=== PATIENT | male | born 1975 | race Caucasian/White ===

== ENCOUNTER 2023-03-01 21:33 | Emergency (ER) | payer SELFPAY ==
--- OUTSIDE RECORDS SUMMARY | 2023-03-01 21:36 | XMS REPORT | Continuity of Care Document ---
Author Name Unknown Address [address] [facility] [address] [place] [address] [facility] Address [address] [facility] [address] [place] [address] Care Team Providers Care Parachute Panel Joiner Name Role Phone [facility], [facility] Primary Care Physician UnaJOSEPH Rivera Attending Clinician Unavailable JOSEPH ALVAREZ Attending Clinician Unavailable JAMAR LIU Attending Clinician Unavailable Jamar Liu MD Attending Clinician Loni Alves DO Attending Clinician LONI ALVES Attending Clinician Unavailab VAUGHN Ewing Attending Clinician Unavailable ADIA TAPIA Attending Clinician UnavailSANTA Conde Attending Clinician Unavailable BEN KING Attending Clinician Unavailable IVON TRIPATHI Attending Clinician Unavailable REUBEN COLE Attending Clinician Unavailab shamir Paymaryse Payer Name Policy Type Policy Number Effective Date Expirati on Date Source [facility] [id number] 00:00:00 2020-01-27 00:00:00 Problems Condition Name Condition Details Condition Category Status Onset Date Resolution Date Last Treatment Date Treating Clinician Comments Source Left inguinal hernia Left inguinal hernia Disease Active 09-28 00:00: 00 [facility] Other constipati on Other constipati on Disease Active 09-28 00:00: 00 [facility] Right groin pain Right groin pain Disease Active 09-28 00:00: 00 [facility] Allergies, Adverse Reactions, Alerts Allergy Name Allergy Type Status Severity Reaction(s) Onset Date Inactive Date Treating Clinician Comments Source No Known Allergie s DA Active U 2018-03 00:00: 00 [facility] [address] NO KNOWN ALLERGIE S Drug Class Active [facility] Social History Social Habit Start Date Stop Date Quantity Comments Source Sexual orientation [facility] History of Social function 2021-04-26 00:00:00 2021-04-26 00:00:00 [facility] Cigarettes smoked current (pack per day) - Reported 2018-09-28 00:00:00 2018-09-28 00:00:00 [facility] Tobacco use and exposure 2018-09-28 00:00:00 2018-09-28 00:00:00 Smokeless tobacco non-user [facility] History of tobacco use 1994-09-28 00:00:00 2018-05-29 00:00:00 Cigarette Smoker [facility] Sex Assigned At 1975 00:00:00 1975 00:00:00 [facility] Smoking Status Start Date Stop Date Source Ex-smoker 2018-09-28 00:00:00 2018-09-28 00:00:00 [facility] Medications Ordered Medication Name Filled Medication Name Start Date Stop Date Current Medication? Ordering Clinician Indication Dosage Frequency Signature (SIG) Comments Components Source busPIRone 15 mg tablet 11-01 00:00: 00 Yes [id number] 15mg Take 1 tablet by mouth in the morning and 1 tablet at noon and 1 tablet in the evening. [facility] pantoprazol e 40 mg EC tablet 11-01 00:00: 00 Yes [id number] TAKE ONE (1) TABLET BY MOUTH EVERY MORNING. [facility] gabapentin 800 mg tablet 11-01 00:00: 00 Yes [id number] 800mg Take 1 tablet by mouth in the morning and 1 tablet at noon and 1 tablet in the evening. [facility] busPIRone 15 mg tablet 8 00:00: 00 Yes [id number] 15mg Take 1 tablet by mouth in the morning and 1 tablet at noon and 1 tablet in the evening. [facility] pantoprazol e 40 mg EC tablet 11-01 00:00: 00 Yes [id number] TAKE ONE (1) TABLET BY MOUTH EVERY MORNING. [facility] gabapentin 800 mg tablet 11-01 00:00: 00 Yes [id number] 800mg Take 1 tablet by mouth in the morning and 1 tablet at noon and 1 tablet in the evening. [facility] busPIRone 15 mg tablet 11-01 00:00: 00 Yes [id number] 15mg Take 1 tablet by mouth in the morning and 1 tablet at noon and 1 tablet in the evening. [facility] pantoprazol e 40 mg EC tablet 11-01 00:00: 00 Yes [id number] TAKE ONE (1) TABLET BY MOUTH EVERY MORNING. [facility] gabapentin 800 mg tablet 11-01 00:00: 00 Yes [id number] 800mg Take 1 tablet by mouth in the morning and 1 tablet at noon and 1 tablet in the evening. [facility] DULoxetine 30 mg capsule 09-12 00:00: 00 Yes [id number] 30mg Take 1 capsule by mouth 2 (two) times daily. [facility] DULoxetine 30 mg capsule 0 09-12 00:00: 00 Yes [id number] 30mg Take 1 capsule by mouth 2 (two) times daily. [facility] DULoxetine 30 mg capsule 0 09-12 00:00: 00 Yes [id number] 30mg Take 1 capsule by mouth 2 (two) times daily. [facility] ondansetron 4 mg tablet 2- 00:00: 00 Yes [id number] 4mg Take 1 tablet by mouth every 8 (eight) hours as needed for Nausea and Vomiting (N/V). [facility] ondansetron 4 mg tablet 05-15 00:00: 00 Yes [id number] 4mg Take 1 tablet by mouth every 8 (eight) hours as needed for Nausea and Vomiting (N/V). [facility] ondansetron 4 mg tablet 05-15 00:00: 00 Yes [id number] 4mg Take 1 tablet by mouth every 8 (eight) hours as needed for Nausea and Vomiting (N/V). [facility] docusate (COLACE) 100 mg capsule 09-28 00:00: 00 Yes [id number] 100mg Take 1 capsule by mouth 2 (two) times daily. [facility] docusate (COLACE) 100 mg capsule 09-28 00:00: 00 Yes [id number] 100mg Take 1 capsule by mouth 2 (two) times daily. [facility] docusate (COLACE) 100 mg capsule 09-28 00:00: 00 Yes [id number] 100mg Take 1 capsule by mouth 2 (two) times daily. [facility] Vital Signs Vital Name Observation Time Observation Value Comments S ource Systolic blood pressure 2023-02-26 08:24:00 149 mm[Hg] [facility] Diastolic blood pressure 2023-02-26 08:24:00 99 mm[Hg] [facility] Heart rate 2023-02-26 08:24:00 88 /min [facility] Body temperature 2023-02-26 08:24:00 36.22 Genet [facility] Respiratory rate 2023-02-26 08:24:00 18 /min [facility] Body height 2023-02-26 08:24:[address] [facility] Body weight 2023-02-26 08:24:[address] [facility] BMI 2023-02-26 08:24:00 24.21 kg/m2 [facility] Oxygen saturation in Arterial blood by Pulse oximetry 2023-02-26 08:24:00 100 /min [facility] Heart rate 2022-12-27 10:16:00 84 /[facility] in Arterial blood by Pulse oximetry 2022-12-27 10:16:00 97 /min [facility] Systolic blood pressure 2022-12-27 10:00:00 154 mm[Hg] [facility] Diastolic blood pressure 2022-12-27 10:00:00 101 mm[Hg] [facility] Body temperature 2022-12-27 09:27:00 36.94 Genet [facility] Respiratory rate 2022-12-27 09:27:00 18 /min [facility] Body height 2022-12-27 09:27:[address] [facility] Body weight 2022-12-27 09:27:[address] [facility] BMI 2022-12-27 09:27:00 25.82 kg/m2 [facility] Systolic blood pressure 2022-12-14 10:51:44 127 mm[Hg] [facility] Diastolic blood pressure 2022-12-14 10:51:44 69 mm[Hg] [facility] Heart rate 2022-12-14 10:51:44 108 /min [facility] Oxygen saturation in Arterial blood by Pulse oximetry 2022-12-14 10:51:44 99 /min [facility] Body temperature 2022-12-14 10:49:00 36.61 Genet [facility] Respiratory rate 2022-12-14 10:49:00 20 /min [facility] Body height 2022-12-14 10:49:[address] [facility] Body weight 2022-12-14 10:49:[address] [facility] BMI 2022-12-14 10:49:00 26.63 kg/m2 [facility] Procedures Procedure Date / Time Performed Performing Clinicia n Source EKG-12 LEAD 2023-02-26 08:29:[facility] 2022-12-27 10:06:[address] [facility] Encounters Start Date/Time End Date/Time Encounter Type Admission Type Attending [facility] Care Department Encounter ID Source 2023-02-26 02:22:00 2023-02-26 02:48:00 Emergency X JOSEPH ALVAREZ AMIR [facility] ERT [id number] [facility] 2023-02-26 02:22:00 2023-02-26 02:48:00 Emergency Joseph Alvarez [facility] [id number] [facility] 2022-12-27 04:23:00 2022-12-27 05:28:00 Emergency X JAMAR LIU [facility] ERT [id number] [facility] 2022-12-27 04:23:00 2022-12-27 05:28:00 Emergency Jamar Liu [facility] [id number] [facility] 2022-12-14 05:43:00 2022-12-14 06:21:00 Emergency Loni Alves [facility] [id number] [facility] 2022-12-14 05:43:00 2022-12-14 06:21:00 Emergency X LONI ALVES [facility] ERT [id number] [facility] 2022-12-04 00:00:00 2022-12-04 00:00:00 Outpatient VAUGHN SHIRLEY [facility] [id number] [facility] 2022-11-01 08:10:19 2022-11-01 09:11:25 Outpatient VAUGHN SHIRLEY [facility] [id number] [facility] 2022-10-15 21:34:00 2022-10-18 17:40:00 Inpatient ADIA TAPIA [facility] [id number] [facility] 2022-10-15 10:36:00 2022-10-15 21:30:00 Emergency 1 LISBETH SANTA [facility] [id number] [facility] 2022-10-15 00:00:00 2022-10-15 00:00:00 Outpatient [facility] [id number] [facility] 2021-05-15 00:00:00 2021-05-15 00:00:00 Outpatient [facility] [id number] [facility] 2021-03-28 10:46:23 2021-03-28 23:59:00 Outpatient BEN KING [facility] [id number] [facility] 2020-02-22 00:00:00 2020-02-22 00:00:00 Outpatient [facility] [id number] [facility] 2020-01-18 00:00:00 2020-01-18 00:00:00 Outpatient [facility] [id number] [facility] 2019-12-15 00:00:00 2019-12-15 00:00:00 Outpatient [facility] [id number] [facility] 2019-10-13 00:00:00 2019-10-13 00:00:00 Outpatient [facility] [id number] [facility] 2019-09-20 00:00:00 2019-09-20 00:00:00 Outpatient [facility] [id number] [facility] 2019-07-19 07:21:30 2019-07-19 07:21:30 Outpatient [facility] [id number] [facility] 2019-07-19 00:00:00 2019-07-19 00:00:00 Outpatient [facility] [id number] [facility] 2019-05-19 13:46:53 2019-05-19 13:46:53 Outpatient [facility] [id number] [facility] 2019-05-03 00:00:00 2019-05-03 00:00:00 Outpatient [facility] [id number] [facility] 2019-04-27 00:00:00 2019-04-27 00:00:00 Outpatient [facility] [id number] [facility] 2019-04-21 00:00:00 2019-04-21 00:00:00 Outpatient [facility] [id number] [facility] 2019-03-31 06:29:00 2019-03-31 06:29:00 Outpatient [facility] [id number] [facility] 2019-03-31 00:00:00 2019-03-31 00:00:00 Outpatient [facility] [id number] [facility] 2019-03-29 00:00:00 2019-03-29 00:00:00 Outpatient [facility] [id number] [facility] 2019-03-22 07:27:48 2019-03-22 07:27:48 Outpatient [facility] [id number] [facility] 2019-03-22 00:00:00 2019-03-22 00:00:00 Outpatient [facility] [id number] [facility] 2019-03-22 00:00:00 2019-03-22 00:00:00 Outpatient [facility] [id number] [facility] 2019-03-05 00:00:00 2019-03-05 00:00:00 Outpatient [facility] [id number] [facility] 2019-03-03 08:46:18 2019-03-03 09:40:40 Outpatient IVON TRIPATHI [facility] [id number] [facility] 2019-03-01 08:11:17 2019-03-01 08:11:17 Outpatient [facility] [id number] [facility] 2019-03-01 07:53:08 2019-03-01 07:53:08 Outpatient [facility] [id number] [facility] 2019-03-01 00:00:00 2019-03-01 00:00:00 Outpatient [facility] [id number] [facility] 2019-02-23 00:00:00 2019-02-23 00:00:00 Outpatient [facility] [id number] [facility] 2019-02-17 00:00:00 2019-02-17 00:00:00 Outpatient [facility] [id number] [facility] 2019-02-16 00:00:00 2019-02-16 00:00:00 Outpatient [facility] [id number] [facility] 2019-01-12 00:00:00 2019-01-12 00:00:00 Outpatient IVON TRIPATHI [facility] [id number] [facility] 2019-01-06 00:00:00 2019-01-06 00:00:00 Outpatient REUBEN COLE [facility] [id number] [facility] 2019-01-06 00:00:00 2019-01-06 00:00:00 Outpatient [facility] [id number] [facility] 2018-11-30 00:00:00 2018-11-30 00:00:00 Outpatient [facility] [id number] [facility] 2018-11-18 00:00:00 2018-11-18 00:00:00 Outpatient [facility] [id number] [facility] 2018-11-16 00:00:00 2018-11-16 00:00:00 Outpatient [facility] [id number] [facility] 2018-06-24 00:00:00 2018-06-24 00:00:00 Outpatient [facility] [id number] [facility] 2018-04-24 00:00:00 2018-04-24 00:00:00 Outpatient [facility] [id number] [facility] 2018-04-14 00:00:00 2018-04-14 00:00:00 Outpatient [facility] [id number] [facility] 2018-03-09 14:21:39 2018-03-09 14:21:39 Outpatient [facility] [id number] [facility] 2018-03-09 13:55:33 2018-03-09 13:55:33 Outpatient [facility] [id number] [facility] 2018-02-19 00:00:00 2018-02-19 00:00:00 Outpatient [facility] [id number] [facility] 2018-01-19 00:00:00 2018-01-19 00:00:00 Outpatient [facility] [id number] [facility] 2018-01-16 00:00:00 2018-01-16 00:00:00 Outpatient [facility] [id number] [facility] 2018-01-14 07:34:07 2018-01-14 07:34:07 Outpatient [facility] [id number] [facility] 2018-01-06 00:00:00 2018-01-06 00:00:00 Outpatient [facility] [id number] [facility] 2017-12-17 00:00:00 2017-12-17 00:00:00 Outpatient [facility] [id number] [facility] 2017-12-03 00:00:00 2017-12-03 00:00:00 Outpatient [facility] [id number] [facility] 2017-11-19 10:43:58 2017-11-19 10:43:58 Outpatient [facility] [id number] [facility] 2017-04-21 00:00:00 2017-04-21 00:00:00 Outpatient [facility] [id number] [facility] 2017-04-17 00:00:00 2017-04-17 00:00:00 Outpatient [facility] [id number] [facility] 2017-02-19 13:38:13 2017-02-19 13:38:13 Outpatient [facility] [id number] [facility] 2017-01-22 00:00:00 2017-01-22 00:00:00 Outpatient [facility] [id number] [facility] 2016-12-10 00:00:00 2016-12-10 00:00:00 Outpatient [facility] [id number] [facility] 2016-11-19 00:00:00 2016-11-19 00:00:00 Outpatient [facility] [id number] [facility] 2016-10-23 00:00:00 2016-10-23 00:00:00 Outpatient [facility] [id number] [facility] 2016-10-17 00:00:00 2016-10-17 00:00:00 Outpatient [facility] [id number] [facility] 2016-10-08 13:10:17 2016-10-08 13:10:17 Outpatient [facility] [id number] [facility] Results Test Description Test Time Test Comments Results Result Co mments Source COMMENT: This [employer] Xpert Xpress SARS-CoV-2 real-time PCR test was developed, and its performancecharacteristics determined by the [facility] molecular diagnostic Laboratory and is acceptable for patient testing. It has been approved for patient testing by the FDA under the Emergency Use Authorization pathway. This laboratory is certified under federal CLIA regulations to perform this type of high complexity testing.[facility] XR CHEST 1 [id number] 13:52:00Patient Name: SAI HEREDIA Unit No: [id number] EXAMS: CPT: [id number] XR CHEST 1 V 49203 CHEST RADIOGRAPH, ONE VIEW: FRONTAL HISTORY: Chest pain. COMPARISON: None FINDINGS: The lungs are clear and the cardiovascular silhouette is normal. No infiltrates or pulmonary edema is present. No pleural effusions are seen. IMPRESSION: No acute lung findings. at 1352 Reported and signed by: Annabella Bustillo MD CC: Bautista Jason DO Technologist: Tad Ernst Fluoro Time: DAP (Gy m2): Air Kerma (mGy): Trscr Dt/Tm: 02/12/2019 ([id number]) by:[email or web address] Orig Print D/T: S: 02/12/2019 ([id number]) BATCH NO: N/A Name: SAI HEREDIA [facility] Phys: [id number] - Bautista Jason [address] [facility] : 1975 Age: 43 Sex: [place] [id number] Loc: N.ERS Exam Date: 02/12/2019 Status: PRE ER PH: FAX: PAGE 1 Signed Report
[2023-03-01 22:07] LABS: Absolute Lymphocytes (CBC) 1.3 K/uL (0.7-4.9); Hematocrit 39.4 % (39.6-49.0); Lymphocytes % 26.4 % (15.3-44.8); MCV 89.1 fL (80-100); Platelets 191 thou/uL (152-406); RBC Red Blood Cell Count 4.43 M/uL (4.33-5.43)
[2023-03-01 22:09] LABS: Protime INR 0.85
[2023-03-01] MEDS ORDERED: METOPROLOL TAR 25 MG TAB ONE (22:13)
[2023-03-01 22:25] LABS: ALT/SGPT 24 U/L (16-61); Albumin 3.5 g/dL (3.4-5.0); Alkaline Phosphatase 107 U/L (45-117); BUN Blood Urea Nitrogen 13 mg/dL (7-18); Bicarbonate 23 mEq/L (21-32); Bilirubin Total 0.2 mg/dL (0.2-1.0); Glomerular Filtration Rate 76 ml/min (=/>90); Glucose Level 159 mg/dL (74-106); Protein, Total 6.9 g/dL (6.4-8.2); Sodium Level 136 mEq/L (136-145)
[2023-03-01 22:30] LABS: AST/SGOT 14 U/L (15-37); Bilirubin Direct < 0.1 mg/dL (0-0.2); Bilirubin Indirect, Calculated ND mg/dL (0.2-0.8)
[2023-03-01 22:52] LABS: Barbiturates NEGATIVE (NEGATIVE); Benzodiazepines NEGATIVE (NEGATIVE); Cocaine NEGATIVE (NEGATIVE); METHAMPHETAM POSITIVE (NEGATIVE); Methadone NEGATIVE (NEGATIVE); Opiates NEGATIVE (NEGATIVE); Phencyclidine NEGATIVE (NEGATIVE); THC Cannibis NEGATIVE (NEGATIVE)
--- NOTE | 2023-03-01 23:15 | EDPHYS ---
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 22:02 The patient presents with hearing voices. Onset: The symptoms/episode began/occurred snw and became worse 3 day(s) ago. Possible causes: schizophrenia. Current symptoms: In the emergency department the patient's symptoms are unchanged from the initial presentation. The patient has experienced similar episodes in the past. recent admission to [facility]. Historical: - Allergies: 21:42 No Known Allergies; rv - PMHx: 21:42 None; rv - PSHx: 21:42 None; rv - Immunization history:: Adult Immunizations unknown. - Social history:: Smoking status: unknown. ROS: 22:01 Constitutional: Negative for fever, chills, and weight loss, Eyes: Negative for injury, snw pain, redness, and discharge, ENT: Negative for injury, pain, and discharge, Neck: Negative for injury, pain, and swelling, Cardiovascular: Negative for chest pain, palpitations, and edema, Respiratory: Negative for shortness of breath, cough, wheezing, and pleuritic chest pain, Abdomen/GI: Negative for abdominal pain, nausea, vomiting, diarrhea, and constipation, Back: Negative for injury and pain, : Negative for injury, bleeding, discharge, and swelling, MS/Extremity: Negative for injury and deformity, Skin: Negative for injury, rash, and discoloration, Neuro: Negative for headache, weakness, numbness, tingling, and seizure, 22:01 Psych: Positive for auditory hallucinations, Exam: 21:59 Constitutional: This is a well developed, well nourished patient who is awake, alert, snw mildly agitated, and in no acute distress. Head/Face: Normocephalic, atraumatic. Eyes: Pupils equal round and reactive to light, extra-ocular motions intact. Lids and lashes normal. Conjunctiva and sclera are non-icteric and not injected. Cornea within normal limits. Periorbital areas with no swelling, redness, or edema. ENT: Nares patent. No nasal discharge, no septal abnormalities noted. Tympanic membranes are normal and external auditory canals are clear. Oropharynx with no redness, swelling, or masses, exudates, or evidence of obstruction, uvula midline. Mucous membranes moist. Neck: Trachea midline, no thyromegaly or masses palpated, and no cervical lymphadenopathy. Supple, full range of motion without nuchal rigidity, or vertebral point tenderness. No Meningismus. Chest/axilla: Normal chest wall appearance and motion. Nontender with no deformity. No lesions are appreciated. Cardiovascular: Regular rate and rhythm with a normal S1 and S2. No gallops, murmurs, or rubs. Normal PMI, no JVD. No pulse deficits. Respiratory: Lungs have equal breath sounds bilaterally, clear to auscultation and percussion. No rales, rhonchi or wheezes noted. No increased work of breathing, no retractions or nasal flaring. Abdomen/GI: Soft, non-tender, with normal bowel sounds. No distension or tympany. No guarding or rebound. No evidence of tenderness throughout. Back: No spinal tenderness. No costovertebral tenderness. Full range of motion. Skin: Warm, dry with normal turgor. Normal color with no rashes, no lesions, and no evidence of cellulitis. MS/ Extremity: Pulses equal, no cyanosis. Neurovascular intact. Full, normal range of motion. Neuro: Awake and alert, GCS 15, oriented to person, place, time, and situation. Cranial nerves II-XII grossly intact. Motor strength 5/5 in all extremities. Sensory grossly intact. Cerebellar exam normal. Normal gait. 21:59 Neuro: Orientation: to person, place \T\ time. Mentation: is normal, Sensation: is normal, Gait: is steady, 21:59 Psych: Behavior/mood is cooperative, anxious, Affect is animated, Oriented to person, place, time, Delusions/hallucinations are present and described as Hearing voices, no SI/HI. Vital Signs: 21:39 BP 146 / 103; Pulse 113; Resp 18; Temp 98; Pulse Ox 100% ; Weight 68.04 kg; Height 5 rv ft. 6 in. ; 22:28 BP 159 / 99; Pulse 110; Resp 18 S; Pulse Ox 99% on R/A; ha1 22:42 BP 127 / 113; Pulse 116; Resp 18; Pulse Ox 100% on R/A; km8 23:13 BP 153 / 99; Pulse 91; Resp 16; Pulse Ox 99% on R/A; km8 03/02 01:30 BP 119 / 70; Pulse 84; Resp 16; Pulse Ox 96% on R/A; km8 02:30 BP 110 / 84; Pulse 78; Resp 14 S; Pulse Ox 98% on R/A; km8 03:00 BP 103 / 75; Pulse 75; Resp 16; Pulse Ox 97% on R/A; km8 04:00 BP 105 / 73; Pulse 69; Resp 15 S; Pulse Ox 97% on R/A; ha1 05:00 BP 105 / 71; Pulse 84; Resp 16; Pulse Ox 99% on R/A; km8 06:00 BP 105 / 69; Pulse 80; Resp 18 S; Pulse Ox 100% on R/A; ha1 03/01 21:39 Body Mass Index 24.21 (68.04 kg, 167.64 cm) rv [place] Coma Score: 03/01 22:01 Eye Response: spontaneous(4). Motor Response: obeys commands(6). Verbal Response: km8 oriented(5). Total: 15. MDM: 21:40 Patient medically screened. snw 23:02 Differential Diagnosis: electrolyte abnormality, alcohol intoxication, psychosis. Data snw reviewed: vital signs, nurses notes, lab test result(s), EKG. I considered the following discharge prescriptions or medication management in the emergency department Medications were administered in the Emergency Department. See MAR. Historians other than the Patient: Law enforcement: Pt brought to ED 2nd to pt wandering around. Counseling: I had a detailed discussion with the patient and/or guardian regarding the historical points, exam findings, and any diagnostic results supporting the discharge/admit diagnosis, the need for outpatient follow up, for definitive care, to return to the emergency department if symptoms worsen or persist or if there are any questions or concerns that arise at home. Special discussion: Based on the history and exam findings, there is no indication for further emergent testing or inpatient evaluation. I discussed with the patient/guardian the need to see the psychiatrist for further evaluation of the symptoms. ED course: Pt denies suicidal/homicidal ideation. 23:48 ED course: At 2215 pt was [facility]. At 2230 pt screaming and running about snw stating the flies were in his ears and trying to kill him. He called his Father and ran back in the ED. I spoke with his Father. He states his Son just got kicked out of [facility]. He just was discharged from [facility] 2 days ago. Today was his first day in the [facility]. His Father states he believes his Son is on Meth and he would like him arrested. Will give a dose of Geodon and let him sleep and then discharge pt to home. . ED course: Father - Aly Coronado [phone]. 03/01 21:49 Order name: Acetaminophen; Complete Time: 22:37 snw 03/01 21:49 Order name: BMP; Complete Time: 22:37 snw 03/01 21:49 Order name: CBC with Diff; Complete Time: 22:09 snw 03/01 21:49 Order name: Ethanol; Complete Time: 22:18 snw 03/01 21:49 Order name: Hepatic Function; Complete Time: 22:37 snw 03/01 21:49 Order name: Protime (+inr); Complete Time: 22:09 snw 03/01 21:49 Order name: Ptt, Activated; Complete Time: 22:09 snw 03/01 21:49 Order name: Salicylate; Complete Time: 22:26 snw 03/01 21:49 Order name: Urine Drug Screen; Complete Time: 23:00 snw 03/01 21:49 Order name: EKG; Complete Time: 21:50 snw 03/01 21:49 Order name: EKG - Nurse/Tech; Complete Time: 22:00 snw 03/01 21:49 Order name: IV Saline Lock; Complete Time: 22:00 snw 03/01 21:49 Order name: Labs collected and sent; Complete Time: 22:00 snw 03/01 21:49 Order name: O2 Per Protocol; Complete Time: 22:00 snw 03/01 21:49 Order name: O2 Sat Monitoring; Complete Time: 22:00 snw 03/01 21:49 Order name: Suicide Screening ([place]); Complete Time: 22:00 snw EC:48 Rate is 103 beats/min. Rhythm is regular. QRS [place] is Normal. IA interval is normal. QT snw interval is normal. No Q waves. Clinical impression: NSR w/ Non-specific ST/T Changes. Administered Medications: 22:00 Drug: Metoprolol PO 25 mg PO once Route: PO; 23:00 Follow up: Response: No adverse reaction 23:15 Drug: Acetaminophen PO 1000 mg PO once Route: PO; 03/02 00:05 Follow up: Response: No adverse reaction 03/01 23:58 Drug: Geodon IM 20 mg IM once Route: IM; Site: right vastus lateralis; 03/02 01:47 Follow up: Response: No adverse reaction; Anxiety decreased Disposition: 03/01 23:47 Co-signature as Attending Physician, Ishmael Dietrich MD I reviewed the patient's care rt provided by the Advanced Practice Provider and agree with the diagnosis and treatment plan. Disposition Summary: 03/01/23 23:14 Discharge Ordered Notes: Location: Home snw Condition: Stable snw Diagnosis - Schizoaffective disorder, unspecified snw Followup: snw - With: Emergency Department - When: As needed - Reason: Worsening of condition Followup: snw - With: Private Physician - When: 2 - 3 days - Reason: Recheck today's complaints, Continuance of care, Re-evaluation by your physician Discharge Instructions: - Discharge Summary Sheet snw - Schizoaffective Disorder snw - Managing Schizoaffective Disorder snw Forms: - Medication Reconciliation Form snw - Thank You Letter snw - Antibiotic Education snw - Prescription Opioid Use snw - Patient Portal Instructions snw - Leadership Thank You Letter snw Signatures: Dispatcher [employer] Erica Mcarthur FNP-C SANITATION INSPECTOR-Csnw Tomy Cameron RN MAKENZIE Megan Giles RN RN [facility] Ishmael Dietrich MD MD rt Giovanna Saleem RN RN 8
--- NOTE | 2023-03-01 23:15 | ER ---
Nurse's Notes [facility] Name: Ron Coronado Age: 47 yrs Sex: Male : 1975 Arrival Date: 03/01/2023 Time: 21:33 Bed 5 Private MD: Diagnosis: Schizoaffective disorder, unspecified Presentation: 03/01 21:39 Chief complaint: Patient states: pt is hearing voices, denies SI/HI. AAOX4 at this rv time. denies pain at this time. Coronavirus screen: At this time, the client does not indicate any symptoms associated with coronavirus-19. Ebola Screen: No symptoms or risks identified at this time. Initial Sepsis Screen: Does the patient meet any 2 criteria? No. Patient's initial sepsis screen is negative. Does the patient have a suspected source of infection? No. Patient's initial sepsis screen is negative. Risk Assessment: Do you want to hurt yourself or someone else? Patient reports no desire to harm self or others. Onset of symptoms was March 01, 2023. 21:39 Method Of Arrival: Ambulatory rv 21:39 Method Of Arrival: Law Enforcement: [facility] rv 21:39 Acuity: QUINTEN 2 rv Triage Assessment: 21:42 General: Appears comfortable, Behavior is calm, cooperative. Pain: Denies pain. EENT: rv No signs and/or symptoms were reported regarding the EENT system. Neuro: Level of Consciousness is awake, alert, obeys commands, Oriented to person, place, time, situation. Cardiovascular: Capillary refill < 3 seconds Patient's skin is warm and dry. Respiratory: Airway is patent Respiratory effort is even, unlabored. GI: No signs and/or symptoms were reported involving the gastrointestinal system. : No signs and/or symptoms were reported regarding the genitourinary system. Derm: Skin is intact. Historical: - Allergies: 21:42 No Known Allergies; rv - PMHx: 21:42 None; rv - PSHx: 21:42 None; rv - Immunization history:: Adult Immunizations unknown. - Social history:: Smoking status: unknown. Screenin:43 [facility] ED Fall Risk Assessment (Adult) History of falling in the last 3 months, rv including since admission No falls in past 3 months (0 pts) Score/Fall Risk Level 0 - 2 = Low Risk Oriented to surroundings, Maintained a safe environment, Educated pt \\T\\ family on fall prevention, incl call for assistance when getting out of bed, Assessed \\T\\ reinforced patient's understanding of fall precautions. Abuse screen: Denies threats or abuse. Denies injuries from another. Nutritional screening: No deficits noted. Tuberculosis screening: No symptoms or risk factors identified. Assessment: 22:01 General: Appears in no apparent distress. comfortable, Behavior is calm, cooperative. km8 Pain: Denies pain. Neuro: Level of Consciousness is awake, alert, obeys commands, Oriented to person, place, time, situation, Reports hearing voices. Cardiovascular: Denies chest pain, shortness of breath, Capillary refill < 3 seconds Patient's skin is warm and dry. Respiratory: Airway is patent Respiratory effort is even, unlabored, Respiratory pattern is regular, symmetrical. GI: No signs and/or symptoms were reported involving the gastrointestinal system. : No signs and/or symptoms were reported regarding the genitourinary system. EENT: No signs and/or symptoms were reported regarding the EENT system. Derm: No signs and/or symptoms reported regarding the dermatologic system. Skin is intact, Skin is dry, Skin is pink, warm \\T\\ dry. normal, Skin temperature is warm. Musculoskeletal: No signs and/or symptoms reported regarding the musculoskeletal system. Circulation, motion, and sensation intact. Range of motion: intact in all extremities. 22:03 General: pt denies SI or HI. km8 23:13 Reassessment: Patient appears in no apparent distress at this time. No changes from km8 previously documented assessment. Patient and/or family updated on plan of care and expected duration. Pain level reassessed. Patient is alert, oriented x 3, equal unlabored respirations, skin warm/dry/pink. 23:50 Reassessment: pt. reports hearing voices that are very annoying. pacing in and out of ha1 room. 03/02 00:03 Reassessment: pt returned from waiting room after initial discharge stating the "king carlin fly is out to get him" and has a blanket wrapped around his head and is still hearing voices. 01:30 Reassessment: Patient appears in no apparent distress at this time. Patient and/or 8 family updated on plan of care and expected duration. Pain level reassessed. Patient is alert, oriented x 3, equal unlabored respirations, skin warm/dry/pink. General: Appears in no apparent distress. comfortable, Behavior is calm, quiet. 02:06 Reassessment: eyes closed. Respiratory: Airway is patent Respiratory effort is even, ha1 unlabored, Respiratory pattern is regular, symmetrical. 03:22 Reassessment: Patient appears in no apparent distress at this time. No changes from 8 previously documented assessment. 04:30 Reassessment: Patient appears in no apparent distress at this time. No changes from km8 previously documented assessment. 05:45 Reassessment: Patient and/or family updated on plan of care and expected duration. Pain ha1 level reassessed. Patient is alert, oriented x 3, equal unlabored respirations, skin warm/dry/pink. 06:32 Reassessment: explained the need to follow up with psychiatric for chcf treatment. 1 Vital Signs: 03/01 21:39 BP 146 / 103; Pulse 113; Resp 18; Temp 98; Pulse Ox 100% ; Weight 68.04 kg; Height 5 rv ft. 6 in. ; 22:28 BP 159 / 99; Pulse 110; Resp 18 S; Pulse Ox 99% on R/A; ha1 22:42 BP 127 / 113; Pulse 116; Resp 18; Pulse Ox 100% on R/A; km8 23:13 BP 153 / 99; Pulse 91; Resp 16; Pulse Ox 99% on R/A; km8 03/02 01:30 BP 119 / 70; Pulse 84; Resp 16; Pulse Ox 96% on R/A; km8 02:30 BP 110 / 84; Pulse 78; Resp 14 S; Pulse Ox 98% on R/A; km8 03:00 BP 103 / 75; Pulse 75; Resp 16; Pulse Ox 97% on R/A; km8 04:00 BP 105 / 73; Pulse 69; Resp 15 S; Pulse Ox 97% on R/A; ha1 05:00 BP 105 / 71; Pulse 84; Resp 16; Pulse Ox 99% on R/A; km8 06:00 BP 105 / 69; Pulse 80; Resp 18 S; Pulse Ox 100% on R/A; ha1 03/01 21:39 Body Mass Index 24.21 (68.04 kg, 167.64 cm) rv [place] Coma Score: 03/01 22:01 Eye Response: spontaneous(4). Motor Response: obeys commands(6). Verbal Response: km8 oriented(5). Total: 15. ED Course: 21:36 Patient arrived in ED. gm2 21:39 Eric[facility] Fuentes [facility]-C [facility]. snw 21:39 Ishmael Dietrich MD is Attending Physician. snw 21:42 Triage completed. rv 21:43 Arm band placed on right wrist. rv 21:43 Patient has correct armband on for positive identification. rv 21:43 No provider procedures requiring assistance completed. rv 21:58 Giovanna Saleem, MAKENZIE is Primary Nurse. km8 22:00 Acetaminophen Sent. km8 22:00 BMP Sent. km8 22:00 CBC with Diff Sent. km8 22:00 Ethanol Sent. km8 22:00 Hepatic Function Sent. km8 22:00 Protime (+inr) Sent. km8 22:00 Ptt, Activated Sent. km8 22:00 Salicylate Sent. km8 22:01 Client placed on continuous cardiac and pulse oximetry monitoring. NIBP monitoring km8 applied. Door closed. Noise minimized. Lights dimmed. Warm blanket given. 22:01 Inserted saline lock: 20 gauge in left forearm, using aseptic technique. Blood km8 collected. Patient maintains SpO2 saturation greater than 95% on room air. 22:29 Urine Drug Screen Sent. km8 23:16 Provided Education on: d/c teaching. km8 23:28 IV discontinued, intact, bleeding controlled, No redness/swelling at site. Pressure ha1 dressing applied. Administered Medications: 22:00 Drug: Metoprolol PO 25 mg PO once Route: PO; km8 23:00 Follow up: Response: No adverse reaction km8 23:15 Drug: Acetaminophen PO 1000 mg PO once Route: PO; km8 03/02 00:05 Follow up: Response: No adverse reaction km8 03/01 23:58 Drug: Geodon IM 20 mg IM once Route: IM; Site: right vastus lateralis; ha1 03/02 01:47 Follow up: Response: No adverse reaction; Anxiety decreased km8 Medication: 03/01 21:43 VIS not applicable for this client. rv Outcome: 23:14 Discharge ordered by . snw 23:27 Discharged to home ambulatory, ha1 23:27 Condition: stable 23:27 Discharge instructions given to patient, Instructed on discharge instructions, follow up and referral plans. Demonstrated understanding of instructions, follow-up care, 23:28 Patient left the ED. ha1 03/02 06:34 Patient left the ED. ha1 Signatures: Erica Fuentes, OFFSET LITHOGRAPHIC PRESS SETTER-C OFFSET LITHOGRAPHIC PRESS SETTER-Csnw Tomy Cameron, RN RN Megan Chavez RN RN 1 Erika Gilbert 2 Giovanna Saleem RN RN km8
[2023-03-01] MEDS ORDERED: ACETAMINOPHEN 500 MG TAB ONE (23:29)
[2023-03-01 23:34] VITALS: TEMP 98
[2023-03-02] MEDS ORDERED: ZIPRASIDONE MESYLA 20 MG/VIAL IM ONE (00:08)
[2023-03-02] MEDS ORDERED: WATER FOR INJ,STERILE 10 ML ONE (00:08)
[2023-03-02 07:22] VITALS: BP 105/69; O2SAT 100
--- NOTE | 2023-03-04 13:51 | EKG ---
Test Date: 2023-03-01 Test Time: 21:48:13 Residency Program Coordinator: MANDO MEASUREMENT RESULTS: Intervals: Rate: 103 IN: 124 QRSD: 84 QT: 328 QTc: 429 [place]: P: 67 IN: 124 QRS: 91 T: 32 INTERPRETIVE STATEMENTS: Sinus tachycardia Rightward axis Borderline ECG No previous ECG available for comparison Electronically Signed On 03-04-23 13:42:05 COMMISSIONED SALES ASSOCIATE by Sushil Clark
== END 2023-03-02 06:34 | disposition home or self-care (01) ==
LOC: ER 21:33
DX: F25.9 Schizoaffective disorder, unspecified (principal); R41.82 Altered mental status, unspecified
CPT/HCPCS: 36415; 80048; 80076; 80143; 80179; 80307; 82077; 85025; 85610; 85730; 93005; 96372; 99285

== ENCOUNTER → 2023-03-14 | Emergency (ER) | payer SELFPAY ==
[~2023-03-14] MED LIST: LORAZEPAM 1 MG TABLET ONE; ONDANSETRON 4 MG/2 ML VIAL ONE
--- OUTSIDE RECORDS SUMMARY | 2023-03-14 19:38 | XMS REPORT | Continuity of Care Document ---
Author Name Unknown Address [address] [facility] [address] [place] [address] [facility] Address [address] [facility] 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 Name Role Phone ELIZABETH FERRER Amy Primary Care Physician Unavailab Jaspal Dennison Attending Clinician Unavailab JOSEPH Christian Attending Clinician Unavailable JOSEPH ALVAREZ Attending Clinician Unavailable JAMAR LIU Attending Clinician Unavailable Jamar Liu MD Attending Clinician Loni Alves DO Attending Clinician LONI ALVES Attending Clinician Unavailab [facility] Attending Clinician Unavailable ADIA TAPIA Attending Clinician UnavailSANTA Conde Attending Clinician Unavailable BEN KING Attending Clinician Unavailable IVON TRIPATHI Attending Clinician Unavailable REUBEN COLE Attending Clinician Unavailab shamir Physician, No Primary or Family Admitting Clinic dereck Unavailable Payers Payer Name Policy Type Policy Number Effective Date Expirati on Date Source [employer] [id number] 00:00:00 2020 00:00:00 Problems Condition Name Condition Details Condition Category Status Onset Date Resolution Date Last Treatment Date Treating Clinician Comments Source Left inguinal hernia Left inguinal hernia Disease Active 09-28 00:00: 00 [facility] Other constipati on Other constipati on Disease Active 09-28 00:00: 00 [facility] Right groin pain Right groin pain Disease Active 09-28 00:00: 00 [facility] Allergies, Adverse Reactions, Alerts Allergy Name Allergy Type Status Severity Reaction(s) Onset Date Inactive Date Treating Clinician Comments Source No Known Allergie s DA Active U 2018-03 00:00: 00 [facility] No Known Allergie s DA Active U 2014-03 00:00: 00 [facility] NO KNOWN ALLERGIE S Drug Class Active [facility] Social History Social Habit Start Date Stop Date Quantity Comments Source Sexual orientation U [facility] History of Social function 2021-04-26 00:00:00 2021-04-26 00:00:00 [facility] Cigarettes smoked current (pack per day) - Reported 2018-09-28 00:00:00 2018-09-28 00:00:00 [facility] Tobacco use and exposure 2018-09-28 00:00:00 2018-09-28 00:00:00 Smokeless tobacco non-user [facility] History of tobacco use 1994-09-28 00:00:00 2018-05-29 00:00:00 Cigarette Smoker [facility] Sex Assigned At 1975 00:00:00 1975 00:00:00 [facility] Smoking Status Start Date Stop Date Source Ex-smoker 2018-09-28 00:00:00 2018-09-28 00:00:00 [facility] Medications Ordered Medication Name Filled Medication Name Start Date Stop Date Current Medication? Ordering Clinician Indication Dosage Frequency Signature (SIG) Comments Components Source busPIRone 15 mg tablet 11-01 00:00: 00 Yes [id number] 15mg Take 1 tablet by mouth in the morning and 1 tablet at noon and 1 tablet in the evening. [facility] pantoprazol e 40 mg EC tablet 2022-0 8-11 00:00: 00 Yes [id number] TAKE ONE (1) TABLET BY MOUTH EVERY MORNING. [facility] gabapentin 800 mg tablet 2022-0 8-11 00:00: 00 Yes [id number] 800mg Take 1 tablet by mouth in the morning and 1 tablet at noon and 1 tablet in the evening. [facility] busPIRone 15 mg tablet 2022-0 8-11 00:00: 00 Yes [id number] 15mg Take 1 tablet by mouth in the morning and 1 tablet at noon and 1 tablet in the evening. [facility] pantoprazol e 40 mg EC tablet 2022-0 8-11 00:00: 00 Yes [id number] TAKE ONE (1) TABLET BY MOUTH EVERY MORNING. [facility] gabapentin 800 mg tablet 2022-0 8- 00:00: 00 Yes [id number] 800mg Take 1 tablet by mouth in the morning and 1 tablet at noon and 1 tablet in the evening. [facility] busPIRone 15 mg tablet 2022-0 8- 00:00: 00 Yes [id number] 15mg Take 1 tablet by mouth in the morning and 1 tablet at noon and 1 tablet in the evening. [facility] pantoprazol e 40 mg EC tablet 2022-0 8- 00:00: 00 Yes [id number] TAKE ONE (1) TABLET BY MOUTH EVERY MORNING. [facility] gabapentin 800 mg tablet 2022-0 8-11 00:00: 00 Yes [id number] 800mg Take 1 tablet by mouth in the morning and 1 tablet at noon and 1 tablet in the evening. [facility] DULoxetine 30 mg capsule 2021-0 6-22 00:00: 00 Yes [id number] 30mg Take 1 capsule by mouth 2 (two) times daily. [facility] DULoxetine 30 mg capsule 2021-0 6-22 00:00: 00 Yes [id number] 30mg Take 1 capsule by mouth 2 (two) times daily. [facility] DULoxetine 30 mg capsule 2-0 6-22 00:00: 00 Yes [id number] 30mg Take 1 capsule by mouth 2 (two) times daily. [facility] ondansetron 4 mg tablet 05-15 00:00: 00 Yes [id number] 4mg Take 1 tablet by mouth every 8 (eight) hours as needed for Nausea and Vomiting (N/V). [facility] ondansetron 4 mg tablet 05-15 00:00: 00 Yes [id number] 4mg Take 1 tablet by mouth every 8 (eight) hours as needed for Nausea and Vomiting (N/V). [facility] ondansetron 4 mg tablet 05-15 00:00: 00 Yes [id number] 4mg Take 1 tablet by mouth every 8 (eight) hours as needed for Nausea and Vomiting (N/V). [facility] docusate (COLACE) 100 mg capsule 09-28 00:00: 00 Yes [id number] 100mg Take 1 capsule by mouth 2 (two) times daily. [facility] docusate (COLACE) 100 mg capsule 09-28 00:00: 00 Yes [id number] 100mg Take 1 capsule by mouth 2 (two) times daily. [facility] docusate (COLACE) 100 mg capsule 09-28 00:00: 00 Yes [id number] 100mg Take 1 capsule by mouth 2 (two) times daily. [facility] Vital Signs Vital Name Observation Time Observation Value Comments S ource Systolic blood pressure 2023-02-26 08:24:00 149 mm[Hg] [facility] Diastolic blood pressure 2023-02-26 08:24:00 99 mm[Hg] [facility] Heart rate 2023-02-26 08:24:00 88 /min [facility] Body temperature 2023-02-26 08:24:00 36.22 Genet [facility] Respiratory rate 2023-02-26 08:24:00 18 /min [facility] Body height 2023-02-26 08:24:00 167.6 cm [facility] Body weight 2023-02-26 08:24:00 68.04 kg [facility] BMI 2023-02-26 08:24:00 24.21 kg/m2 [facility] Oxygen saturation in Arterial blood by Pulse oximetry 2023-02-26 08:24:00 100 /min [facility] Heart rate 2022-12-27 10:16:00 84 /[facility] saturation in Arterial blood by Pulse oximetry 2022-12-27 10:16:00 97 /min [facility] Systolic blood pressure 2022-12-27 10:00:00 154 mm[Hg] [facility] Diastolic blood pressure 2022-12-27 10:00:00 101 mm[Hg] [facility] Body temperature 2022-12-27 09:27:00 36.94 Genet [facility] Respiratory rate 2022-12-27 09:27:00 18 /min [facility] Body height 2022-12-27 09:27:00 167.6 cm [facility] Body weight 2022-12-27 09:27:00 72.576 kg [facility] BMI 2022-12-27 09:27:00 25.82 kg/m2 [facility] Systolic blood pressure 2022-12-14 10:51:44 127 mm[Hg] [facility] Diastolic blood pressure 2022-12-14 10:51:44 69 mm[Hg] [facility] Heart rate 2022-12-14 10:51:44 108 /min [facility] Oxygen saturation in Arterial blood by Pulse oximetry 2022-12-14 10:51:44 99 /min [facility] Body temperature 2022-12-14 10:49:00 36.61 Genet [facility] Respiratory rate 2022-12-14 10:49:00 20 /min [facility] Body height 2022-12-14 10:49:00 167.6 cm [facility] Body weight 2022-12-14 10:49:00 74.844 kg [facility] BMI 2022-12-14 10:49:00 26.63 kg/m2 [facility] Procedures Procedure Date / Time Performed Performing Clinicia n Source EKG-12 LEAD 2023-02-26 08:29:28 Joseph Alvarez [facility] EKG-12 LEAD 2022-12-27 10:06:12 Jamar Lui [facility] Encounters Start Date/Time End Date/Time Encounter Type Admission Type Attending [facility] Care Facility Care Department Encounter ID Source 2023-03-11 23:57:00 2023-03-14 12:49:00 Emergency EM Farzaneh Jaspal [facility] [id number] 07 [facility] 2023-02-26 02:22:00 2023-02-26 02:48:00 Emergency X JOSEPH ALVAREZ [facility] ERT [id number] [facility] 2023-02-26 02:22:00 2023-02-26 02:48:00 Emergency Joseph Alvarez [facility] [id number] [facility] 2022-12-27 04:23:00 2022-12-27 05:28:00 Emergency X EDUARDOCHUCKIEJAMAR [facility] ERT [id number] [facility] 2022-12-27 04:23:00 2022-12-27 05:28:00 Emergency Gil Liuthad Suresh [facility] [id number] [facility] 2022-12-14 05:43:00 2022-12-14 06:21:00 Emergency Loni Alves [facility] [id number] [facility] 2022-12-14 05:43:00 2022-12-14 06:21:00 Emergency X LONI ALVES [facility] ERT [id number] [facility] 2022-12-04 00:00:00 2022-12-04 00:00:00 Outpatient VAUGHN SHIRLEY [facility] [id number] [facility] 2022-11-01 08:10:19 2022-11-01 09:11:25 Outpatient VAUGHN SHIRLEY [facility] [id number] [facility] 2022-10-15 21:34:00 2022-10-18 17:40:00 Inpatient ADIA TAPIA [facility] [id number] [facility] 2022-10-15 10:36:00 2022-10-15 21:30:00 Emergency 1 SANTA BOB [facility] [id number] [facility] 2022-10-15 00:00:00 2022-10-15 00:00:00 Outpatient [facility] [id number] [facility] 2021-05-15 00:00:00 2021-05-15 00:00:[address] [facility] [id number] [facility] 2021-03-28 10:46:23 2021-03-28 23:59:00 Outpatient BEN KING [facility] [id number] [facility] 2020-02-22 00:00:00 2020-02-22 00:00:00 Outpatient [facility] [id number] [facility] 2020-01-18 00:00:00 2020-01-18 00:00:00 Outpatient [facility] [id number] [facility] 2019-12-15 00:00:00 2019-12-15 00:00:00 Outpatient [facility] [id number] [facility] 2019-10-13 00:00:00 2019-10-13 00:00:00 Outpatient [facility] [id number] [facility] 2019-09-20 00:00:00 2019-09-20 00:00:00 Outpatient [facility] [id number] [facility] 2019-07-19 07:21:30 2019-07-19 07:21:30 Outpatient [facility] [id number] [facility] 2019-07-19 00:00:00 2019-07-19 00:00:00 Outpatient [facility] [id number] [facility] 2019-05-19 13:46:53 2019-05-19 13:46:53 Outpatient [facility] [id number] [facility] 2019-05-03 00:00:00 2019-05-03 00:00:00 Outpatient [facility] [id number] [facility] 2019-04-27 00:00:00 2019-04-27 00:00:00 Outpatient [facility] [id number] [facility] 2019-04-21 00:00:00 2019-04-21 00:00:00 Outpatient [facility] [id number] [facility] 2019-03-31 06:29:00 2019-03-31 06:29:00 Outpatient [facility] [id number] [facility] 2019-03-31 00:00:00 2019-03-31 00:00:00 Outpatient [facility] [id number] [facility] 2019-03-29 00:00:00 2019-03-29 00:00:00 Outpatient [facility] [id number] [facility] 2019-03-22 07:27:48 2019-03-22 07:27:48 Outpatient [facility] [id number] [facility] 2019-03-22 00:00:00 2019-03-22 00:00:00 Outpatient [facility] [id number] [facility] 2019-03-22 00:00:00 2019-03-22 00:00:00 Outpatient [facility] [id number] [facility] 2019-03-05 00:00:00 2019-03-05 00:00:00 Outpatient [facility] [id number] [facility] 2019-03-03 08:46:18 2019-03-03 09:40:40 Outpatient IVON TRIPATHI [facility] [id number] [facility] 2019-03-01 08:11:17 2019-03-01 08:11:17 Outpatient [facility] [id number] [facility] 2019-03-01 07:53:08 2019-03-01 07:53:08 Outpatient [facility] [id number] [facility] 2019-03-01 00:00:00 2019-03-01 00:00:00 Outpatient [facility] [id number] [facility] 2019-02-23 00:00:00 2019-02-23 00:00:00 Outpatient [facility] [id number] [facility] 2019-02-17 00:00:00 2019-02-17 00:00:00 Outpatient [facility] [id number] [facility] 2019-02-16 00:00:00 2019-02-16 00:00:00 Outpatient [facility] [id number] [facility] 2019-01-12 00:00:00 2019-01-12 00:00:00 Outpatient IVON TRIPATHI [facility] [id number] [facility] 2019-01-06 00:00:00 2019-01-06 00:00:00 Outpatient REUBEN COLE [facility] [id number] [facility] 2019-01-06 00:00:00 2019-01-06 00:00:00 Outpatient [facility] [id number] [facility] 2018-11-30 00:00:00 2018-11-30 00:00:00 Outpatient [facility] [id number] [facility] 2018-11-18 00:00:00 2018-11-18 00:00:00 Outpatient [facility] [id number] [facility] 2018-11-16 00:00:00 2018-11-16 00:00:00 Outpatient [facility] [id number] [facility] 2018-06-24 00:00:00 2018-06-24 00:00:00 Outpatient [facility] [id number] [facility] 2018-04-24 00:00:00 2018-04-24 00:00:00 Outpatient [facility] [id number] [facility] 2018-04-14 00:00:00 2018-04-14 00:00:00 Outpatient [facility] [id number] [facility] 2018-03-09 14:21:39 2018-03-09 14:21:39 Outpatient [facility] [id number] [facility] 2018-03-09 13:55:33 2018-03-09 13:55:33 Outpatient [facility] [id number] [facility] 2018-02-19 00:00:00 2018-02-19 00:00:00 Outpatient [facility] [id number] [facility] 2018-01-19 00:00:00 2018-01-19 00:00:00 Outpatient [facility] [id number] [facility] 2018-01-16 00:00:00 2018-01-16 00:00:00 Outpatient [facility] [id number] [facility] 2018-01-14 07:34:07 2018-01-14 07:34:07 Outpatient [facility] [id number] [facility] 2018-01-06 00:00:00 2018-01-06 00:00:00 Outpatient [facility] [id number] [facility] 2017-12-17 00:00:00 2017-12-17 00:00:00 Outpatient [facility] [id number] [facility] 2017-12-03 00:00:00 2017-12-03 00:00:00 Outpatient [facility] [id number] [facility] 2017-11-19 10:43:58 2017-11-19 10:43:58 Outpatient [facility] [id number] [facility] 2017-04-21 00:00:00 2017-04-21 00:00:00 Outpatient [facility] [id number] [facility] 2017-04-17 00:00:00 2017-04-17 00:00:00 Outpatient [facility] [id number] [facility] 2017-02-19 13:38:13 2017-02-19 13:38:13 Outpatient [facility] [id number] [facility] 2017-01-22 00:00:00 2017-01-22 00:00:00 Outpatient [facility] [id number] [facility] 2016-12-10 00:00:00 2016-12-10 00:00:00 Outpatient [facility] [id number] [facility] 2016-11-19 00:00:00 2016-11-19 00:00:00 Outpatient [facility] [id number] [facility] 2016-10-23 00:00:00 2016-10-23 00:00:00 Outpatient [facility] [id number] [facility] 2016-10-17 00:00:00 2016-10-17 00:00:00 Outpatient [facility] [id number] [facility] 2016-10-08 13:10:17 2016-10-08 13:10:17 Outpatient [facility] [id number] [facility] Results Test Description Test Time Test Comments Results Result Co mments Source CBC W/AUTO [id number] 01:47:00* Test Item Value Reference Range Interpretation Comme nts WHITE BLOOD CELL (test code = WBC) 5.2 K/mm3 3.5-11.0 N RED BLOOD CELL (test code = RBC) 4.51 M/mm3 4.70-6.10 L HEMOGLOBIN (test code = HGB) 13.6 G/DL 12.3-15.9 N HEMATOCRIT (test code = HCT) 39.6 % 35.8-46.7 N MEAN CELL VOLUME (test code = MCV) 87.8 Fl 86.3-98.9 N MEAN CELL HGB (test code = MCH) 30.2 pg 28.9-34.4 N MEAN CELL HGB CONCETRATION (test code = MCHC) 34.3 G/DL 32.1-34.5 N RED CELL DISTRIBUTION WIDTH (test code = RDW) 12.4 SD 11.5-14.5 N PLATELET COUNT (test code = PLT) 172 K/mm3 150-450 N MEAN PLATELET VOLUME (test code = MPV) 10.30 fL 7.0-9.6 H NEUTROPHIL % (test code = NT%) 77.6 % 40-76 H IMMATURE GRANULOCYTE % (test code = IG%) 1.3 % 0.0-5.0 N LYMPHOCYTE % (test code = LY%) 11.1 % 20.5-51.1 L MONOCYTE % (test code = MO%) 9.4 % 1.7-9.3 H EOSINOPHIL % (test code = EO%) 0.2 % 0.0-6.0 N BASOPHIL % (test code = BA%) 0.4 % 0.0-2.0 N NUCLEATED RBC % (test code = NRBC%) 0.0 /100WBC% 0.0-1.0 N NEUTROPHIL # (test code = NT#) 4.1 K/mm3 1.8-7.6 N IMMATURE GRANULOCYTE # (test code = IG#) 0.07 x10 3/uL 0.00-0.03 H LYMPHOCYTE # (test code = LY#) 0.6 K/mm3 0.6-3.0 N MONOCYTE # (test code = MO#) 0.5 K/mm3 0.2-1.5 N EOSINOPHIL # (test code = EO#) 0.0 K/mm3 0.0-0.4 N BASOPHIL # (test code = BA#) 0.0 K/mm3 0.0-0.2 N NUCLEATED RBC # (test code = NRBC#) 0.0 K/mm3 0.00-0.01 N MANUAL DIFF REQUIRED (test code = MDIFF) NO DIFF/SCN CRITERIA SLIDE REVIEW CONSISTANT WITH AUTO DIFFERENTIAL. BASIC METABOLIC [id number] 01:10:00* Test Item Value Reference Range Interpretation Comme nts SODIUM (test code = NA) 140 mmol/L 134-147 N POTASSIUM (test code = K) 3.8 mmol/L 3.4-5.0 N CHLORIDE (test code = CL) 107 mmol/L 100-108 N CARBON DIOXIDE (test code = CO2) 26 mmol/L 21-32 N ANION GAP (test code = GAP) 7.0 GAP calc 4.0-15.0 N GLUCOSE (test code = GLU) 119 MG/DL 70-110 H BLOOD UREA NITROGEN (test code = BUN) 14 MG/DL 7-18 N GLOMERULAR FILTRATION RATE (test code = GFR) >=60 max estimate estGFR >60 The Glomerular Filtration Rate is a calculated parameterbased on serum Creatinine, patient age and sex. GFR valuesless than 60 mL/min/1.73 square meters are indicative ofChronic Kidney Disease. Values less than 15 mL/min/1.73square meters indicate Kidney failure. The calculation forGFR is based on the CKD-EPI (2020) calculation. This formulais race indifferent and is the recommended formula for GFRby the National Kidney Foundation for Adults.The GFR will not calculate if the sex is unknown or if thepatient's age is <18 years. CREATININE (test code = CREAT) 1.1 MG/DL 0.8-1.3 N CALCIUM (test code = CA) 8.7 MG/DL 8.5-10.1 N HEPATIC FUNCTION [id number] 01:10:00* Test Item Value Reference Range Interpretation Comme nts TOTAL PROTEIN (test code = PROT) 7.4 G/DL 6.4-8.2 N ALBUMIN (test code = ALB) 3.9 G/DL 3.4-5.0 N BILIRUBIN TOTAL (test code = BILT) 0.30 MG/DL 0.2-1.2 N BILIRUBIN DIRECT (test code = BILD) < 0.10 MG/DL 0.00-0.30 N BILIRUBIN INDIRECT (test cod e = BILIND) 0.20 MG/DL 0.2-1.2 N SGOT/AST (test code = AST) 21 Unit/L 15-37 N SGPT/ALT (test code = ALT) 31 Unit/L 12-78 N ALKALINE PHOSPHATASE TOTAL ( test code = ALKP) 109 Unit/L 50-136 N [id number] 01:10:00* Test Item Value Reference Range Interpretation Comme nts ALCOHOL (test code = ALC) < 3 MG/DL 0-10 N DRUGS OF ABUSE SCREEN [id number] 00:55:00* Test Item Value Reference Range Interpretation Comme nts URN COCAINE (test code = COCAURN) NEGATIVE SCcutoff See_Comment UNCONFIRMED SCREENING RESULTS SHOULD NOT BE USED FORNON-MEDICAL PURPOSES. [Automated message] The system which generated this result transmitted reference range: <300 NG/ML. The reference range was not used to interpret this result as normal/abnormal. URN CANNABINOIDS (test code = CANNABURN) NEGATIVE SCcutoff See_Comment UNCONFIRMED SCREENING RESULTS SHOULD NOT BE USED FORNON-MEDICAL PURPOSES. [Automated message] The system which generated this result transmitted reference range: <50 NG/ML. The reference range was not used to interpret this result as normal/abnormal. URN AMPHETAMINE (test code = AMPHETURN) POSITIVE SCcutoff See_Comment A UNCONFIRMED SCREENING RESULTS SHOULD NOT BE USED FORNON-MEDICAL PURPOSES. [Automated message] The system which generated this result transmitted reference range: <1000 NG/ML. The reference range was not used to interpret this result as normal/abnormal. URN BARBITURATE (test code = BARBITURN) NEGATIVE SCcutoff See_Comment UNCONFIRMED SCREENING RESULTS SHOULD NOT BE USED FORNON-MEDICAL PURPOSES. [Automated message] The system which generated this result transmitted reference range: <200 NG/ML. The reference range was not used to interpret this result as normal/abnormal. URN BENZODIAZEPINE (test code = BENZOURN) NEGATIVE SCcutoff See_Comment UNCONFIRMED SCREENING RESULTS SHOULD NOT BE USED FORNON-MEDICAL PURPOSES. [Automated message] The system which generated this result transmitted reference range: <200 NG/ML. The reference range was not used to interpret this result as normal/abnormal. URN OPIATES (test code = OPIATURN) NEGATIVE SCcutoff See_Comment UNCONFIRMED SCREENING RESULTS SHOULD NOT BE USED FORNON-MEDICAL PURPOSES. [Automated message] The system which generated this result transmitted reference range: <300 NG/ML. The reference range was not used to interpret this result as normal/abnormal. URN PHENCYCLIDINE (PCP) (test code = PHENCURN) NEGATIVE SCcutoff See_Comment UNCONFIRMED SCREENING RESULTS SHOULD NOT BE USED FORNON-MEDICAL PURPOSES. [Automated message] The system which generated this result transmitted reference range: <25 NG/ML. The reference range was not used to interpret this result as normal/abnormal. URN METHADONE (test code = METHAURN) NEGATIVE SCcutoff See_Comment UNCONFIRMED SCREENING RESULTS SHOULD NOT BE USED FORNON-MEDICAL PURPOSES. [Automated message] The system which generated this result transmitted reference range: <300 NG/ML. The reference range was not used to interpret this result as normal/abnormal. SARS-CoV-2 RNA Resp Ql [id number] 16:49:12* Test Item Value Reference Range Interpretation Comme nts Hospitalized? (test code = 89588-2) No ICU? (test code = 47928-6) No Symptomatic as defined by CDC? (test code = 43237-8) No Employed in Healthcare? (test code = 68634-0) No Resident in a congregate care setting (including nursing homes, residential care for people with intellectual and developmental disabilities, psychiatric treatment facilities, group homes, board and care homes, homeless snf, foster care or other): (test code = 38880-0) No SARS-CoV-2 RNA Resp Ql MEL+probe (test code = 92567-2) NOT DETECTED Not Detected INTERPRETATION: No detectable levels of SARS-CoV-2 Coronavirus (COVID-19) were present in this patient's sample by this test. A not detected result does not exclude the possibility of active infection with this virus due to other factors that may affect the results such as a poorly collected sample, viral titers below the limit of detection of the assay, and the infrequent possibility of inhibitors in the sample. This result should be interpreted in conjunction with clinical, radiographic, and other laboratory findings and should not be used as the sole indicator of active infection with SARS-CoV-2 Coronavirus (COVID-19). COMMENT: This [employer] Xpert Xpress SARS-CoV-2 real-time PCR test was developed, and its performancecharacteristics determined by the [facility] molecular diagnostic Laboratory and is acceptable for patient testing. It has been approved for patient testing by the FDA under the Emergency Use Authorization pathway. This laboratory is certified under federal CLIA regulations to perform this type of high complexity testing.[facility]- XR CHEST 1 [id number] 13:52:00Patient Name: SAI HEREDIA Unit No: [id number] EXAMS: CPT: [id number] XR CHEST 1 V 86291 CHEST RADIOGRAPH, ONE VIEW: FRONTAL HISTORY: Chest pain. COMPARISON: None FINDINGS: The lungs are clear and the cardiovascular silhouette is normal. No infiltrates or pulmonary edema is present. No pleural effusions are seen. IMPRESSION: No acute lung findings. at 1352 Reported and signed by: Annabella Bustillo MD CC: Bautista Jason DO Technologist:Tad Irving Time: DAP (Gy m2): Air Kerma (mGy): Trscr Dt/Tm: 02/12/2019 (1470) by:[email or web address] Orig Print D/T: S: 02/12/2019 (1935) BATCH NO: N/A Name: SAI HEREDIA [facility] Phys: JOSE.Karan - Bautista Jason [address] [facility] : 1975 Age: 43 Sex: [place] [address] Loc: N.ERS Exam Date: 02/12/2019 Status: PRE ER PH: FAX: PAGE 1 Signed Report
[2023-03-14 21:14] LABS: Protime INR 0.94
[2023-03-14 21:39] LABS: ALT/SGPT 29 U/L (16-61); AST/SGOT 16 U/L (15-37); Albumin 3.9 g/dL (3.4-5.0); Alkaline Phosphatase 94 U/L (45-117); BUN Blood Urea Nitrogen 34 mg/dL (7-18); Bicarbonate 20 mEq/L (21-32); Bilirubin Direct 0.3 mg/dL (0-0.2); Bilirubin Indirect, Calculated 1.5 mg/dL (0.2-0.8); Bilirubin Total 1.8 mg/dL (0.2-1.0); Glomerular Filtration Rate 59 ml/min (=/>90); Glucose Level 133 mg/dL (74-106); Potassium 3.7 mEq/L (3.5-5.1); Protein, Total 8.4 g/dL (6.4-8.2); Sodium Level 133 mEq/L (136-145)
[2023-03-14 21:52] LABS: Absolute Lymphocytes (CBC) 0.2 K/uL (0.7-4.9); Hematocrit 50.6 % (39.6-49.0); MCV 89.2 fL (80-100); MPV 8.9 fL (7.6-11.3); Platelets 132 thou/uL (152-406); RBC Red Blood Cell Count 5.67 M/uL (4.33-5.43)
[2023-03-14 23:47] LABS: Blood Morphology Comment NOT SEEN (NOT SEEN); Platelet Estimate DECR; White Blood Cell Scan OK (OK)
--- NOTE | 2023-03-15 00:26 | ER ---
Nurse's Notes [facility] Name: Ron Coronado Age: 47 yrs Sex: Male : 1975 Arrival Date: 03/14/2023 Time: 19:34 Bed 4 Private MD: Diagnosis: Schizophrenia, acute psychosis Presentation: 03/14 19:38 Chief complaint: Patient states: It's not chest pain it is heart burn in my upper vc1 stomach. The voices are telling me someone is after me, they are actually trying to protect me. EMS states: He was admitted in [place] earlier today for hearing voices. He left and started having chest pain and the voices got worse. Coronavirus screen: Vaccine status: Patient reports being unvaccinated. Client denies travel out of the [place] in the last 14 days. At this time, the client does not indicate any symptoms associated with coronavirus-19. Ebola Screen: Patient negative for fever greater than or equal to 101.5 degrees Fahrenheit, and additional compatible Ebola Virus Disease symptoms Patient denies exposure to infectious person. Patient denies travel to an Ebola-affected area in the 21 days before illness onset. No symptoms or risks identified at this time. 19:38 Method Of Arrival: EMS: [facility] vc1 19:38 Initial Sepsis Screen: Does the patient meet any 2 criteria? No. Patient's initial vc1 sepsis screen is negative. Does the patient have a suspected source of infection? No. Patient's initial sepsis screen is negative. Risk Assessment: Do you want to hurt yourself or someone else? Patient reports no desire to harm self or others. Note Pt states he has had a couple of beers today and did meth 3 days ago. Pt out of his ativan. Onset of symptoms was March 14, 2023. 19:38 Acuity: QUINTEN 3 vc1 Triage Assessment: 20:31 General: Appears in no apparent distress. comfortable, slender, Behavior is vc1 cooperative, anxious. Pain: Complains of pain in epigastric area Pain radiates to mid-sternal area Pain currently is 8 out of 10 on a pain scale. Quality of pain is described as burning, Aggravated by eating, drinking. Historical: - Allergies: 20:24 No Known Allergies; vc1 - PMHx: 20:24 Schizophrenia; Anxiety; Chronic back pain; vc1 - PSHx: 20:24 None; vc1 - Immunization history:: Client reports receiving the 2nd dose of the Covid vaccine, Flu vaccine is up to date. - Social history:: Smoking status: Patient reports the use of cigarette tobacco products, Patient uses alcohol, admits to "couple of beers" a day. street drugs, Methamphetamine (Meth). Screenin:33 [facility] ED Fall Risk Assessment (Adult) History of falling in the last 3 months, vc1 including since admission No falls in past 3 months (0 pts) Confusion or Disorientation No (0 pts) Intoxicated or Sedated No (0 pts) Impaired Gait No (0 pts) Mobility Assist Device Used No (0 pt) Altered Elimination No (0 pt) Score/Fall Risk Level 0 - 2 = Low Risk Oriented to surroundings, Maintained a safe environment, Educated pt \\T\\ family on fall prevention, incl call for assistance when getting out of bed. Abuse screen: Denies threats or abuse. Nutritional screening: No deficits noted. Tuberculosis screening: No symptoms or risk factors identified. Assessment: 21:10 Reassessment: Patient appears in no apparent distress at this time. No changes from km8 previously documented assessment. Patient and/or family updated on plan of care and expected duration. Pain level reassessed. pt resting with eyes closed at this time. 22:26 Reassessment: Patient appears in no apparent distress at this time. No changes from km8 previously documented assessment. Patient and/or family updated on plan of care and expected duration. Pain level reassessed. 23:14 Reassessment: Patient appears in no apparent distress at this time. No changes from km8 previously documented assessment. Patient and/or family updated on plan of care and expected duration. Pain level reassessed. 03/15 01:15 Reassessment: Patient appears in no apparent distress at this time. No changes from km8 previously documented assessment. Patient and/or family updated on plan of care and expected duration. Pain level reassessed. 02:44 Reassessment: notified provider, gave vanessa doyle. GI: Reports nausea. vc1 03:02 Reassessment: spoke with Ashley with [facility] and gave nurse to nurse vc1 report. 04:00 Reassessment: Patient appears in no apparent distress at this time. No changes from km8 previously documented assessment. Patient and/or family updated on plan of care and expected duration. Pain level reassessed. Vital Signs: 03/14 19:30 BP 123 / 90; Pulse 113; Resp 16; Pulse Ox 99% on R/A; km8 19:38 BP 137 / 116; Pulse 119; Resp 15; Pulse Ox 100% ; Weight 71.21 kg; Height 5 ft. 6 in. ; vc1 Pain 8/10; 20:00 BP 119 / 83; Pulse 107; Resp 18; Pulse Ox 98% on R/A; km8 20:30 BP 102 / 77; Pulse 108; Resp 16; Pulse Ox 98% on R/A; km8 20:31 Temp 98.2; vc1 21:00 BP 122 / 81; Pulse 100; Resp 16; Pulse Ox 98% on R/A; km8 22:00 BP 127 / 86; Pulse 105; Resp 16; Pulse Ox 99% on R/A; km8 23:00 BP 111 / 82; Pulse 102; Pulse Ox 98% on R/A; km8 03/15 00:00 BP 105 / 77; km8 01:00 BP 115 / 83; km8 02:00 BP 121 / 93; Pulse 103; Pulse Ox 98% on R/A; km8 02:30 BP 113 / 79; Pulse 99; Resp 16; Pulse Ox 98% on R/A; km8 04:00 BP 118 / 98; Pulse 102; Pulse Ox 97% on R/A; km8 03/14 19:38 Body Mass Index 25.34 (71.21 kg, 167.64 cm) vc1 19:38 Pain Scale: Adult vc1 ED Course: 03/14 19:38 Patient arrived in ED. km8 19:47 Tad Pulido MD is Attending Physician. kdr 19:48 Inserted saline lock: 20 gauge in right antecubital area, using aseptic technique. ap3 Blood collected. 19:48 EKG done, by ED staff, reviewed by Tad Pulido MD. ap3 19:49 Arm band placed on right wrist. ap3 19:49 Patient has correct armband on for positive identification. Bed in low position. Call ap3 light in reach. Side rails up X2. dumpman on. Pulse ox on. NIBP on. 20:04 Attending Physician role handed off by Tad Pulido MD sp3 20:04 Carroll Reddy MD is Attending Physician. sp3 20:19 Daily Dixon, RN is Primary Nurse. vc1 20:24 Triage completed. vc1 23:15 contacted [facility] spoke with Krystal. jr12 03/15 00:50 Faxed intake for placement to [place], [facility], [facility], [facility], [address], [facility], [facility], [facility], [facility], and [facility]. 02:58 [facility] nurse called to do nurse to nurse report. jr12 04:32 No provider procedures requiring assistance completed. IV discontinued, intact, km8 bleeding controlled, No redness/swelling at site. Pressure dressing applied. 04:32 Provided Education on: transfer process. km8 Administered Medications: 03/14 20:31 Drug: LORazepam PO 2 mg PO once Route: PO; vc1 21:35 Follow up: Response: No adverse reaction; Anxiety decreased km8 03/15 02:43 Drug: Ondansetron IVP 4 mg IVP once; over 2 minutes Route: IVP; Site: right antecubital;vc1 04:32 Follow up: Response: No adverse reaction km8 Medication: 03/14 20:33 VIS not applicable for this client. vc1 Outcome: 03/15 00:25 ER care complete, transfer ordered by . sp3 04:33 Transferred by ground EMS to other acute care facility: [facility]. km8 Transfer form completed. 04:33 Condition: good 04:33 Instructed on the need for transfer, Demonstrated understanding of instructions, 04:33 Patient left the ED. km8 Signatures: Tad Pulido MD MD [facility] Esperanza Davis RN RN ap3 Carroll Reddy MD MD sp3 Daily Dixon, RN RN [facility] [place] [id number] Giovanna Saleem RN RN km8
--- NOTE | 2023-03-15 00:26 | EDPHYS ---
Physician Documentation [facility] Name: Ron Coronado Age: 47 yrs Sex: Male : 1975 Arrival Date: 03/14/2023 Time: 19:34 Bed 4 Private MD: ED Physician Carroll Reddy HPI: 03/14 19:52 This 47 yrs old Male presents to ER via Unassigned with complaints of Uncontrolled kdr anxiety. 19:52 The patient and EMS report that he had been in the hospital in [place] on a 3-day stay kdr for schizophrenia exacerbation. Patient voluntarily left earlier today and went home apparently in [place]. After being there 30 minutes to an hour, the patient began to hear voices again. Voices are not instructing him to hurt himself but are more paranoid in nature. Patient then called EMS again and he was transported to the emergency department here. Patient is resting comfortably in bed without any complaints.. Onset: The symptoms/episode began/occurred suddenly, just prior to arrival. Historical: - Allergies: 20:24 No Known Allergies; vc1 - PMHx: 20:24 Schizophrenia; Anxiety; Chronic back pain; vc1 - PSHx: 20:24 None; vc1 - Immunization history:: Client reports receiving the 2nd dose of the Covid vaccine, Flu vaccine is up to date. - Social history:: Smoking status: Patient reports the use of cigarette tobacco products, Patient uses alcohol, admits to "couple of beers" a day. street drugs, Methamphetamine (Meth). ROS: 19:52 Constitutional: Negative for fever, chills, and weight loss, Eyes: Negative for injury, kdr pain, redness, and discharge, ENT: Negative for injury, pain, and discharge, Neck: Negative for injury, pain, and swelling, Cardiovascular: Negative for chest pain, palpitations, and edema, Respiratory: Negative for shortness of breath, cough, wheezing, and pleuritic chest pain, Abdomen/GI: Negative for abdominal pain, nausea, vomiting, diarrhea, and constipation, Back: Negative for injury and pain, : Negative for injury, bleeding, discharge, and swelling, MS/Extremity: Negative for injury and deformity, Skin: Negative for injury, rash, and discoloration, Neuro: Negative for headache, weakness, numbness, tingling, and seizure activity. Allergy/Immunology: Negative for hives, rash, and allergies, Endocrine: Negative for neck swelling, polydipsia, polyuria, polyphagia, and marked weight changes, Hematologic/Lymphatic: Negative for swollen nodes, abnormal bleeding, and unusual bruising, 19:52 Psych: Positive for anxiety, auditory hallucinations, Exam: 19:52 Constitutional: This is a well developed, well nourished patient who is awake, alert, kdr and in no acute distress. Head/Face: Normocephalic, atraumatic. Eyes: Pupils equal round and reactive to light, extra-ocular motions intact. Lids and lashes normal. Conjunctiva and sclera are non-icteric and not injected. Cornea within normal limits. Periorbital areas with no swelling, redness, or edema. Neck: Trachea midline, no thyromegaly or masses palpated, and no cervical lymphadenopathy. Supple, full range of motion without nuchal rigidity, or vertebral point tenderness. No Meningismus. Chest/axilla: Normal chest wall appearance and motion. Nontender with no deformity. No lesions are appreciated. Cardiovascular: Regular rate and rhythm with a normal S1 and S2. No gallops, murmurs, or rubs. Normal PMI, no JVD. No pulse deficits. Respiratory: Lungs have equal breath sounds bilaterally, clear to auscultation and percussion. No rales, rhonchi or wheezes noted. No increased work of breathing, no retractions or nasal flaring. Abdomen/GI: Soft, non-tender, with normal bowel sounds. No distension or tympany. No guarding or rebound. No evidence of tenderness throughout. Back: No spinal tenderness. No costovertebral tenderness. Full range of motion. Skin: Warm, dry with normal turgor. Normal color with no rashes, no lesions, and no evidence of cellulitis. MS/ Extremity: Pulses equal, no cyanosis. Neurovascular intact. Full, normal range of motion. Neuro: Awake and alert, GCS 15, oriented to person, place, time, and situation. Cranial nerves II-XII grossly intact. Motor strength 5/5 in all extremities. Sensory grossly intact. Cerebellar exam normal. Normal gait. 19:52 Psych: Behavior/mood is pleasant, cooperative, anxious, Affect is flat, Oriented to person, place, time, Delusions/hallucinations are present and described as Auditory, paranoid (no SI or HI). Vital Signs: 19:30 BP 123 / 90; Pulse 113; Resp 16; Pulse Ox 99% on R/A; km8 19:38 BP 137 / 116; Pulse 119; Resp 15; Pulse Ox 100% ; Weight 71.21 kg; Height 5 ft. 6 in. ; vc1 Pain 8/10; 20:00 BP 119 / 83; Pulse 107; Resp 18; Pulse Ox 98% on R/A; km8 20:30 BP 102 / 77; Pulse 108; Resp 16; Pulse Ox 98% on R/A; km8 20:31 Temp 98.2; vc1 21:00 BP 122 / 81; Pulse 100; Resp 16; Pulse Ox 98% on R/A; km8 22:00 BP 127 / 86; Pulse 105; Resp 16; Pulse Ox 99% on R/A; km8 23:00 BP 111 / 82; Pulse 102; Pulse Ox 98% on R/A; km8 03/15 00:00 BP 105 / 77; km8 01:00 BP 115 / 83; km8 02:00 BP 121 / 93; Pulse 103; Pulse Ox 98% on R/A; km8 02:30 BP 113 / 79; Pulse 99; Resp 16; Pulse Ox 98% on R/A; km8 04:00 BP 118 / 98; Pulse 102; Pulse Ox 97% on R/A; km8 03/14 19:38 Body Mass Index 25.34 (71.21 kg, 167.64 cm) vc1 19:38 Pain Scale: Adult vc1 MDM: 03/14 21:15 Patient medically screened. sp3 03/15 00:24 Data reviewed: vital signs, nurses notes, lab test result(s). ED course: [facility] sp3 team evaluated patient and recommends inpatient treatment. We will transfer to appropriate facility.. 03/14 20:04 Order name: Acetaminophen; Complete Time: 23:07 kdr 03/14 20:04 Order name: Basic Metabolic Panel; Complete Time: 23:07 kdr 03/14 20:04 Order name: CBC with Diff kdr 03/14 20:04 Order name: ETOH Level; Complete Time: 23:07 kdr 03/14 20:04 Order name: Hepatic Function; Complete Time: 23:07 kdr 03/14 20:04 Order name: PT-INR; Complete Time: 23:07 kdr 03/14 20:04 Order name: Ptt, Activated; Complete Time: 23:07 kdr 03/14 20:04 Order name: Salicylate; Complete Time: 23:07 kdr 03/14 23:49 Order name: CBC Smear Scan EDWI 03/14 20:04 Order name: EKG; Complete Time: 20:04 kdr 03/14 20:04 Order name: EKG - Nurse/Tech; Complete Time: 20: kdr 03/14 20:04 Order name: IV Saline Lock; Complete Time: 20: kdr 03/14 20:04 Order name: Labs collected and sent; Complete Time: 20: kdr 03/14 20:04 Order name: Suicide Screening ([place]); Complete Time: : kdr Administered Medications: 03/14 20:31 Drug: LORazepam PO 2 mg PO once Route: PO; vc1 21:35 Follow up: Response: No adverse reaction; Anxiety decreased 8 03/15 02:43 Drug: Ondansetron IVP 4 mg IVP once; over 2 minutes Route: IVP; Site: right antecubital;vc1 04:32 Follow up: Response: No adverse reaction km8 Disposition Summary: 03/15/23 00:25 Transfer Ordered Notes: Transfer Location: Psych Facility sp3 Reason: Higher level of care sp3 Condition: Stable sp3 Problem: an acute exacerbation sp3 Symptoms: have worsened sp3 Accepting Physician: IFEANYI(03/15/23 04:33) km8 Diagnosis - Schizophrenia, acute psychosis sp3 Discharge Instructions: - Discharge Summary Sheet jr12 Forms: - Medication Reconciliation Form sp3 - SBAR form jr12 Signatures: Dispatcher [employer] EDTad Menendez MD MD kdr Carroll Reddy MD MD sp3 Daily Dixon RN RN vc1 Giovanna Saleem RN RN km8 Corrections: (The following items were deleted from the chart) 04:33 00:25 IFEANYI sp3 km8
[2023-03-15 05:00] VITALS: TEMP 98.2
[2023-03-15 05:12] VITALS: BP 118/98; O2SAT 97
== END ==
LOC: ER 19:34
DX: F20.9 Schizophrenia, unspecified (principal)
CPT/HCPCS: 36415; 80048; 80076; 80143; 80179; 82077; 85025; 85610; 85730; 96374; 99285

== ENCOUNTER → 2023-05-15 | Emergency (ER) | payer SELFPAY ==
[~2023-05-15] MED LIST changes: -LORAZEPAM 1 MG TABLET ONE; +LORazepam 2 MG/ML VIAL ONE; -ONDANSETRON 4 MG/2 ML VIAL ONE
[2023-05-16 00:16] LABS: Hematocrit 40.8 % (39.6-49.0); Lymphocytes % 21.5 % (15.3-44.8); MCV 84.8 fL (80-100); MPV 8.1 fL (7.6-11.3); Platelets 155 thou/uL (152-406); RBC Red Blood Cell Count 4.81 M/uL (4.33-5.43)
[2023-05-16 00:19] LABS: Urine Bacteria <20 /HPF (<20); Urine Bilirubin NEGATIVE (Negative); Urine Blood Negative (Negative); Urine Clarity Turbid (Clear); Urine Color Light-Yellow (Yellow); Urine Glucose NEGATIVE (Negative); Urine Mucus Slight /HPF (None Seen); Urine Protein NEGATIVE (Negative); Urine RBC <5 /HPF (None Seen); Urine Urobilinogen Normal (Normal)
[2023-05-16 00:26] LABS: Barbiturates NEGATIVE (NEGATIVE); Benzodiazepines NEGATIVE (NEGATIVE); Cocaine NEGATIVE (NEGATIVE); METHAMPHETAM POSITIVE (NEGATIVE); Methadone NEGATIVE (NEGATIVE); Opiates NEGATIVE (NEGATIVE); Phencyclidine NEGATIVE (NEGATIVE); THC Cannibis NEGATIVE (NEGATIVE)
[2023-05-16 00:30] LABS: Protime INR 0.96
[2023-05-16 00:52] LABS: ALT/SGPT 33 U/L (16-61); AST/SGOT 20 U/L (15-37); Albumin 3.7 g/dL (3.4-5.0); Alkaline Phosphatase 86 U/L (45-117); BUN Blood Urea Nitrogen 10 mg/dL (7-18); Bicarbonate 26 mEq/L (21-32); Bilirubin Direct 0.1 mg/dL (0-0.2); Bilirubin Indirect, Calculated 0.2 mg/dL (0.2-0.8); Bilirubin Total 0.3 mg/dL (0.2-1.0); Glomerular Filtration Rate 92 ml/min (=/>90); Glucose Level 133 mg/dL (74-106); Potassium 3.5 mEq/L (3.5-5.1); Protein, Total 7.2 g/dL (6.4-8.2); Sodium Level 135 mEq/L (136-145)
--- NOTE | 2023-05-16 01:27 | ER ---
Nurse's Notes [facility] Name: Ron Coronado Age: 47 yrs Sex: Male : 1975 Arrival Date: 05/15/2023 Time: 23:36 Bed 17 Private MD: Diagnosis: Auditory hallucinations Presentation: 05/15 23:38 Chief complaint: Patient states: "there are people following me". Patient reports ap3 hearing people as well but he can't see them. patient denies any SI or HI at this time. Patient reports last ETOH was yesterday and used Methamphetamine 3 days ago. Coronavirus screen: At this time, the client does not indicate any symptoms associated with coronavirus-19. Ebola Screen: No symptoms or risks identified at this time. Initial Sepsis Screen: Does the patient meet any 2 criteria? No. Patient's initial sepsis screen is negative. Does the patient have a suspected source of infection? No. Patient's initial sepsis screen is negative. Risk Assessment: Do you want to hurt yourself or someone else? Patient reports no desire to harm self or others. Onset of symptoms was May 15, 2023. 23:38 Method Of Arrival: EMS: [facility] ap3 23:38 Acuity: QUINTEN 3 ap3 Triage Assessment: 23:41 General: Appears in no apparent distress. Behavior is cooperative, anxious. Pain: ap3 Denies pain. Neuro: Level of Consciousness is awake, alert, obeys commands, Oriented to person, place, time. Cardiovascular: Patient's skin is warm and dry. Respiratory: Airway is patent Respiratory effort is even, unlabored, Respiratory pattern is regular, symmetrical. Historical: - Allergies: 23:41 No Known Allergies; ap3 - PMHx: 23:41 Anxiety; chronic back pain; Schizophrenia; ap3 - Immunization history:: Client reports receiving the 2nd dose of the Covid vaccine, Flu vaccine is up to date. - Social history:: Smoking status: Patient reports the use of cigarette tobacco products, smokes one-half pack cigarettes per day, Patient uses alcohol, street drugs, Methamphetamine (Meth). Screenin:45 [facility] ED Fall Risk Assessment (Adult) History of falling in the last 3 months, ap3 including since admission No falls in past 3 months (0 pts). Abuse screen: Denies threats or abuse. Nutritional screening: No deficits noted. Tuberculosis screening: No symptoms or risk factors identified. Assessment: 05/16 01:28 Reassessment: Patient and/or family updated on plan of care and expected duration. Pain ap3 level reassessed. Patient is alert, oriented x 3, equal unlabored respirations, skin warm/dry/pink. 02:00 General: Appears comfortable, Behavior is calm, cooperative. Pain: Denies pain. Neuro: ha1 Level of Consciousness is awake, alert, obeys commands, Oriented to person, place, time, situation, Reports hallucinations, hearing voices. Denies suicidal ideation . Cardiovascular: Patient's skin is warm and dry. GI: No signs and/or symptoms were reported involving the gastrointestinal system. Abdomen is non-distended. Derm: Skin is pink, warm \\T\\ dry. Musculoskeletal: Circulation, motion, and sensation intact. Range of motion: intact in all extremities. 02:39 Reassessment: eyes closed. Respiratory: Airway is patent Respiratory effort is even, ha1 unlabored, Respiratory pattern is regular, symmetrical. 03:30 Reassessment: eyes closed. Respiratory: Airway is patent Respiratory effort is even, ha1 unlabored, Respiratory pattern is regular, symmetrical. 03:30 Reassessment: CONNECTED TO NASAL CANULA DUE TO SLEEP APNEA. ha1 04:00 Reassessment: [facility] jewelry sales representative in the room. ha1 04:30 Reassessment: Patient and/or family updated on plan of care and expected duration. Pain ha1 level reassessed. Patient is alert, oriented x 3, equal unlabored respirations, skin warm/dry/pink. Patient denies pain at this time. 05:23 Reassessment: Patient and/or family updated on plan of care and expected duration. Pain ha1 level reassessed. Patient is alert, oriented x 3, equal unlabored respirations, skin warm/dry/pink. 06:12 Reassessment: EYES CLOSED. Respiratory: Airway is patent Respiratory effort is even, ha1 unlabored, Respiratory pattern is regular, symmetrical. 06:55 Reassessment: nurse to nurse report given to MAKENZIE Conner at [facility]. ha1 07:00 Reassessment: Report received from skein yarn drier RN. ll1 Psych: 05/15 23:45 [place] Suicide Severity Screening: In the past month, have you wished you were ap3 or wished you could go to sleep and not wake up? Patient responds "No." "In the past month, have you actually had any thoughts of killing yourself?" Patient responds "no." "In your lifetime, have you ever done anything, started to do anything, or prepared to do anything to end your life?" Patient responds "no.". Subjective: Delusions are denied, Hallucinations are auditory. Objective: Patient is cooperative, Speech is normal. Safety Checks: Patient uses Last use was 1 days ago. Patient uses methamphetamines Last use was 3 days ago. 05/16 02:00 Interventions: placed near nurse station. ha1 02:00 Commitment: Patient will be a voluntary commitment. ha1 Vital Signs: 05/15 23:38 BP 152 / 96; Pulse 64; Resp 17; Temp 97.9; Pulse Ox 100% on R/A; Weight 70.31 kg; ap3 Height 5 ft. 6 in. ; Pain 0/10; 05/16 00:25 BP 122 / 93; Pulse 88; Resp 18; Pulse Ox 98% on R/A; ap3 00:55 BP 144 / 92; ap3 02:00 BP 120 / 72; Pulse 82; Resp 17 S; Pulse Ox 95% on R/A; ha1 02:39 BP 112 / 65; Pulse 80; Resp 17 S; Pulse Ox 98% on R/A; ha1 03:30 BP 113 / 67; Pulse 75; Resp 17 S; Pulse Ox 100% on 1 lpm NC; ha1 04:30 BP 138 / 74; Pulse 70; Resp 17 S; Pulse Ox 98% on 1 lpm NC; ha1 05:24 BP 131 / 78; Pulse 72; Resp 17 S; Pulse Ox 98% on R/A; ha1 06:13 BP 120 / 76; Pulse 78; Resp 17 S; Pulse Ox 98% on R/A; ha1 05/15 23:38 Body Mass Index 25.02 (70.31 kg, 167.64 cm) ap3 05/15 23:38 Pain Scale: Adult ap3 ED Course: 05/15 23:38 Patient arrived in ED. ap3 23:41 Triage completed. ap3 23:45 Arm band placed on right wrist. ap3 23:46 Patient has correct armband on for positive identification. Bed in low position. Call ap3 light in reach. Side rails up X2. elevator worker on. Pulse ox on. NIBP on. 23:47 [facility]. cp 23:47 Dakota Mercado MD is Attending Physician. cp 05/16 00:04 Esperanza Davis, RN is Primary Nurse. ap3 00:04 Initial lab(s) drawn, by ny, sent to lab. Urine collected: clean catch specimen, clear. ap3 Inserted saline lock: 20 gauge in right antecubital area, using aseptic technique. 00:05 No provider procedures requiring assistance completed. ap3 00:06 EKG done, by ED staff, reviewed by Dakota SANTIAGO. ap3 00:26 Primary Nurse role handed off by Esperanza Davis, RN ap3 00:39 Esperanza Davis, MAKENZIE is Primary Nurse. ap3 01:48 called [facility] to initiate consult for patient. vk 02:00 Report received from MAKENZIE Mata. ha1 06:17 faxed patient clinicals to [facility], [facility], and [facility] . eb 06:54 connected [facility] Weiss with Megan Mcdaniels for patient transfer consultation. eb 06:58 administrative approval given by Aixa Salas / Dr. Terra Doshi has accepted the patient eb in transfer without conference with the provider/ patient has been accepted to [facility]. Administered Medications: 04:45 Drug: Ativan IVP 1 mg IVP once Route: IVP; Site: right antecubital; ha1 05:23 Follow up: Response: No adverse reaction; Marked relief of symptoms; RASS: Alert and ha1 Calm (0) Medication: 05/15 23:46 VIS not applicable for this client. ap3 Outcome: 05/16 01:27 ER care complete, transfer ordered by . cp 07:41 Patient left the ED. ll1 Signatures: Dakota Redmond PA PA cp Esperanza Davis, RN RN ap3 Faviola Blevins Lynsay, RN RN ll1 Megan Giles RN RN ha1 Chanda Welch
--- NOTE | 2023-05-16 01:27 | EDPHYS ---
Physician Documentation [facility] Name: Ron Coronado Age: 47 yrs Sex: Male : 1975 Arrival Date: 05/15/2023 Time: 23:36 Bed 17 Private MD: ED Physician Dakota Mercado HPI: 05/16 00:00 This 47 yrs old Male presents to ER via EMS with complaints of Hearing Voices. cp 00:00 The patient presents to the emergency department with psychosis, has experienced cp auditory hallucinations, telling him they want to kill him. Onset: The symptoms/episode began/occurred today. Historical: - Allergies: 05/15 23:41 No Known Allergies; ap3 - PMHx: 23:41 Anxiety; chronic back pain; Schizophrenia; ap3 - Immunization history:: Client reports receiving the 2nd dose of the Covid vaccine, Flu vaccine is up to date. - Social history:: Smoking status: Patient reports the use of cigarette tobacco products, smokes one-half pack cigarettes per day, Patient uses alcohol, street drugs, Methamphetamine (Meth). ROS: 05/16 00:05 Constitutional: Negative for body aches, chills, fever, poor PO intake, cp 00:05 Psych: Positive for auditory hallucinations, cp 00:05 Cardiovascular: Negative for chest pain, edema, palpitations, cp 00:05 Eyes: Negative for injury, pain, redness, and discharge, cp 00:05 Respiratory: Negative for cough, shortness of breath, wheezing, 00:05 Abdomen/GI: Negative for abdominal pain, vomiting, diarrhea, constipation, 00:05 Neuro: Negative for altered mental status, dizziness, headache, weakness, 00:05 All other systems are negative, Exam: 00:10 Constitutional: The patient appears in no acute distress, alert, awake, cp non-diaphoretic, non-toxic, well developed, well nourished, 00:10 Head/Face: Normocephalic, atraumatic. cp 00:10 Eyes: Periorbital structures: appear normal, Pupils: equal, round, and reactive to light and accomodation, Extraocular movements: intact throughout, Conjunctiva: normal, no exudate, no injection, Sclera: no appreciated abnormality, Lids and lashes: appear normal, bilaterally, 00:10 ENT: External ear(s): are unremarkable, Nose: is normal, Mouth: Lips: moist, Oral mucosa: pink and intact, moist, Posterior pharynx: is normal, airway is patent, no erythema, no exudate, 00:10 Chest/axilla: Inspection: normal, 00:10 Cardiovascular: Rate: normal, Rhythm: regular, Edema: is not appreciated, JVD: is not appreciated, 00:10 Respiratory: the patient does not display signs of respiratory distress, Respirations: normal, no use of accessory muscles, no retractions, labored breathing, is not present, Breath sounds: are clear throughout, no decreased breath sounds, no stridor, no wheezing, 00:10 Abdomen/GI: Inspection: abdomen appears normal, Palpation: abdomen is soft and non-tender, in all quadrants, 00:10 Neuro: Orientation: to person, place, situation, Mentation: able to follow commands, Motor: moves all fours, strength is normal, 00:10 Psych: Behavior/mood is cooperative, Affect is calm, 00:12 ECG was reviewed by the Attending Physician. cp Vital Signs: 05/15 23:38 BP 152 / 96; Pulse 64; Resp 17; Temp 97.9; Pulse Ox 100% on R/A; Weight 70.31 kg; ap3 Height 5 ft. 6 in. ; Pain 0/10; 05/16 00:25 BP 122 / 93; Pulse 88; Resp 18; Pulse Ox 98% on R/A; ap3 00:55 BP 144 / 92; ap3 02:00 BP 120 / 72; Pulse 82; Resp 17 S; Pulse Ox 95% on R/A; ha1 02:39 BP 112 / 65; Pulse 80; Resp 17 S; Pulse Ox 98% on R/A; ha1 03:30 BP 113 / 67; Pulse 75; Resp 17 S; Pulse Ox 100% on 1 lpm NC; ha1 04:30 BP 138 / 74; Pulse 70; Resp 17 S; Pulse Ox 98% on 1 lpm NC; ha1 05:24 BP 131 / 78; Pulse 72; Resp 17 S; Pulse Ox 98% on R/A; ha1 06:13 BP 120 / 76; Pulse 78; Resp 17 S; Pulse Ox 98% on R/A; ha1 05/15 23:38 Body Mass Index 25.02 (70.31 kg, 167.64 cm) ap3 02/22 23:38 Pain Scale: Adult ap3 MDM: 05/15 23:54 Patient medically screened. cp 05/16 01:20 Data reviewed: vital signs, nurses notes, lab test result(s), EKG. cp 05/15 23:47 Order name: Acetaminophen; Complete Time: 01:13 cp 05/15 23:47 Order name: Basic Metabolic Panel; Complete Time: 01:13 cp 05/16 01:14 Interpretation: Normal except: NA 135; GLUC 133. cp 05/15 23:47 Order name: CBC with Diff; Complete Time: 01:13 cp 05/15 23:47 Order name: ETOH Level; Complete Time: 01:13 cp 05/15 23:47 Order name: Hepatic Function; Complete Time: 01:13 cp 05/15 23:47 Order name: PT-INR; Complete Time: 01:13 cp 05/15 23:47 Order name: Ptt, Activated; Complete Time: 01:13 cp 05/15 23:47 Order name: Salicylate; Complete Time: 01:13 cp 05/15 23:47 Order name: Urinalysis w/ reflexes; Complete Time: 01:13 cp 05/16 01:14 Interpretation: Normal except: [facility] Turbid. cp 05/15 23:47 Order name: Urine Drug Screen; Complete Time: 01:13 cp 05/16 01:14 Interpretation: Normal except: METHAMPHETAMINE POSITIVE. cp 05/15 23:47 Order name: EKG; Complete Time: 23:48 cp 05/15 23:47 Order name: EKG - Nurse/Tech; Complete Time: 00:06 cp 05/15 23:47 Order name: IV Saline Lock; Complete Time: 00:04 cp 05/15 23:47 Order name: Labs collected and sent; Complete Time: 00:04 cp 05/15 23:47 Order name: Suicide Screening ([place]); Complete Time: 23:51 cp EC:12 Rate is 93 beats/min. Rhythm is regular. RI interval is normal. QRS interval is normal. cp QT interval is normal. T waves are Inverted in lead aVR. Interpreted by me. Reviewed by me. Administered Medications: 04:45 Drug: Ativan IVP 1 mg IVP once Route: IVP; Site: right antecubital; ha1 05:23 Follow up: Response: No adverse reaction; Marked relief of symptoms; RASS: Alert and ha1 Calm (0) Disposition Summary: 05/16/23 01:27 Transfer Ordered Notes: Reason: Higher level of care cp Condition: Stable cp Problem: new cp Symptoms: are unchanged cp Accepting Physician: Doctor(05/16/23 07:41) 1 Transfer Location: Psych Facility(05/16/23 07:41) 1 Diagnosis - Auditory hallucinations cp Forms: - Medication Reconciliation Form cp - SBAR form cp Signatures: Dispatcher [employer] EDMS Dakota Redmond PA PA cp Prokisch, Amanda RN RN ap3 Shar Guerrero RN RN ll1 Megan Giles RN RN 1 Corrections: (The following items were deleted from the chart) 07:41 01:27 Doctor cp [facility] 07:41 01:27 Psych Facility cp [facility]
[2023-05-16 07:56] VITALS: TEMP 97.9; O2SAT 98
[2023-05-16 08:20] VITALS: BP 120/76
== END ==
LOC: ER 23:36
DX: R44.0 Auditory hallucinations (principal); F41.9 Anxiety disorder, unspecified; M54.9 Dorsalgia, unspecified; G89.29 Other chronic pain; F15.90 Other stimulant use, unspecified, uncomplicated; F17.210 Nicotine dependence, cigarettes, uncomplicated
CPT/HCPCS: 36415; 81001; 93005

== ENCOUNTER → 2023-05-16 | Emergency (ER) | payer SELFPAY ==
[2023-05-16 21:10] LABS: Absolute Lymphocytes (CBC) 1.2 K/uL (0.7-4.9); Lymphocytes % 23.9 % (15.3-44.8); MPV 8.2 fL (7.6-11.3); Platelets 164 thou/uL (152-406)
[2023-05-16 21:22] LABS: Protime INR 0.9
[2023-05-16 21:37] LABS: Specific Gravity 1.028 (1.005-1.030); Urine Bacteria None Seen /HPF (<20); Urine Bilirubin NEGATIVE (Negative); Urine Blood Negative (Negative); Urine Clarity Turbid (Clear); Urine Color Light-Yellow (Yellow); Urine Glucose NEGATIVE (Negative); Urine Mucus 2+ /HPF (None Seen); Urine Protein TRACE (Negative); Urine RBC <5 /HPF (None Seen); Urine Urobilinogen Normal (Normal)
[2023-05-16 21:38] LABS: Barbiturates NEGATIVE (NEGATIVE); Benzodiazepines NEGATIVE (NEGATIVE); Cocaine NEGATIVE (NEGATIVE); METHAMPHETAM POSITIVE (NEGATIVE); Methadone NEGATIVE (NEGATIVE); Opiates NEGATIVE (NEGATIVE); Phencyclidine NEGATIVE (NEGATIVE); THC Cannibis NEGATIVE (NEGATIVE)
[2023-05-16 21:45] LABS: ALT/SGPT 32 U/L (16-61); AST/SGOT 19 U/L (15-37); Albumin 3.5 g/dL (3.4-5.0); Alkaline Phosphatase 98 U/L (45-117); BUN Blood Urea Nitrogen 18 mg/dL (7-18); Bicarbonate 28 mEq/L (21-32); Bilirubin Total 0.2 mg/dL (0.2-1.0); Glomerular Filtration Rate 96 ml/min (=/>90); Glucose Level 114 mg/dL (74-106); Potassium 4.2 mEq/L (3.5-5.1); Protein, Total 6.8 g/dL (6.4-8.2); Sodium Level 143 mEq/L (136-145)
[2023-05-16 21:48] LABS: Bilirubin Direct < 0.1 mg/dL (0-0.2); Bilirubin Indirect, Calculated ND mg/dL (0.2-0.8)
--- NOTE | 2023-05-16 22:00 | EDPHYS ---
Physician Documentation [facility] Name: Ron Coronado Age: 47 yrs Sex: Male : 1975 Arrival Date: 05/16/2023 Time: 20:15 Bed 14 Private MD: NEREIDA Physician Dakota Mercado HPI: 05/16 21:53 This 47 yrs old Male presents to ER via EMS with complaints of HALLUCINATING, radha SCHIZO USES METH. 21:53 The patient presents to the emergency department with psychosis, a history of substance radha abuse. Onset: The symptoms/episode began/occurred 2 day(s) ago. Past psychiatric history: Prior diagnosis: schizophrenia, Psychiatric medications include:. Associated signs and symptoms: Pertinent positives; anxiety, hallucinations. Severity of symptoms: At their worst the symptoms were mild in the emergency department the symptoms are unchanged. The patient has experienced similar episodes in the past, multiple times. Historical: - Allergies: 20:41 No Known Allergies; vc1 - PMHx: 20:41 Anxiety; chronic back pain; Schizophrenia; vc1 - PSHx: 20:41 hernia repairs; vc1 - Immunization history:: Flu vaccine status is unknown. - Social history:: Smoking status: Patient reports the use of cigarette tobacco products, 3-4 a day, Patient uses alcohol, street drugs, Methamphetamine (Meth) States used Meth a few days ago. - Family history:: not pertinent. ROS: 21:53 Constitutional: Negative for fever, chills, and weight loss, Eyes: Negative for injury, radha pain, redness, and discharge, ENT: Negative for injury, pain, and discharge, Neck: Negative for injury, pain, and swelling, Cardiovascular: Negative for chest pain, palpitations, and edema, Respiratory: Negative for shortness of breath, cough, wheezing, and pleuritic chest pain, Abdomen/GI: Negative for abdominal pain, nausea, vomiting, diarrhea, and constipation, Back: Negative for injury and pain, : Negative for injury, bleeding, discharge, and swelling, MS/Extremity: Negative for injury and deformity, Skin: Negative for injury, rash, and discoloration, Neuro: Negative for headache, weakness, numbness, tingling, and seizure, Allergy/Immunology: Negative for hives, rash, and allergies, Endocrine: Negative for neck swelling, polydipsia, polyuria, polyphagia, and marked weight changes, Hematologic/Lymphatic: Negative for swollen nodes, abnormal bleeding, and unusual bruising, 21:53 Psych: Positive for anxiety, drug dependence, auditory hallucinations, Exam: 21:53 Constitutional: This is a well developed, well nourished patient who is awake, alert, radha and in no acute distress. Head/Face: Normocephalic, atraumatic. Eyes: Pupils equal round and reactive to light, extra-ocular motions intact. Lids and lashes normal. Conjunctiva and sclera are non-icteric and not injected. Cornea within normal limits. Periorbital areas with no swelling, redness, or edema. ENT: Nares patent. No nasal discharge, no septal abnormalities noted. Tympanic membranes are normal and external auditory canals are clear. Oropharynx with no redness, swelling, or masses, exudates, or evidence of obstruction, uvula midline. Mucous membranes moist. Neck: Trachea midline, no thyromegaly or masses palpated, and no cervical lymphadenopathy. Supple, full range of motion without nuchal rigidity, or vertebral point tenderness. No Meningismus. Chest/axilla: Normal chest wall appearance and motion. Nontender with no deformity. No lesions are appreciated. Cardiovascular: Regular rate and rhythm with a normal S1 and S2. No gallops, murmurs, or rubs. Normal PMI, no JVD. No pulse deficits. Respiratory: Lungs have equal breath sounds bilaterally, clear to auscultation and percussion. No rales, rhonchi or wheezes noted. No increased work of breathing, no retractions or nasal flaring. Abdomen/GI: Soft, non-tender, with normal bowel sounds. No distension or tympany. No guarding or rebound. No evidence of tenderness throughout. Back: No spinal tenderness. No costovertebral tenderness. Full range of motion. Male : Normal genitalia with no discharge or lesions. Skin: Warm, dry with normal turgor. Normal color with no rashes, no lesions, and no evidence of cellulitis. MS/ Extremity: Pulses equal, no cyanosis. Neurovascular intact. Full, normal range of motion. Neuro: Awake and alert, GCS 15, oriented to person, place, time, and situation. Cranial nerves II-XII grossly intact. Motor strength 5/5 in all extremities. Sensory grossly intact. Cerebellar exam normal. Normal gait. Psych: Awake, alert, with orientation to person, place and time. Behavior, mood, and affect are within normal limits. 21:53 ECG was reviewed by the Attending Physician. Vital Signs: 20:35 BP 132 / 76; Pulse 107; Resp 12; Pulse Ox 97% ; Weight 70.31 kg; Height 5 ft. 6 in. ; vc1 23:55 BP 109 / 87; Pulse 87; Resp 17 S; Pulse Ox 97% on R/A; ha1 05/17 00:56 BP 120 / 92; Pulse 95; Resp 17 S; Pulse Ox 97% on R/A; ha1 02:00 BP 145 / 99; Pulse 75; Resp 17 S; Pulse Ox 100% on R/A; ha1 04:00 BP 136 / 80; Pulse 85; Resp 17 S; Pulse Ox 95% on R/A; ha1 06:51 BP 121 / 88; Pulse 78; Resp 17 S; Pulse Ox 99% on R/A; ha1 09:50 BP 125 / 91; Pulse 81; Resp 17; Pulse Ox 99% on R/A; rs5 05/16 20:35 Body Mass Index 25.02 (70.31 kg, 167.64 cm) vc1 MDM: 05/16 20:28 Patient medically screened. radha 22:01 Differential diagnosis: acute psychotic break, depression, psychosis secondary to radha non-compliance. Data reviewed: vital signs, nurses notes, lab test result(s), EKG. Consideration of Admission/Observation Escalation of care including admission/observation considered. I considered the following discharge prescriptions or medication management in the emergency department Medications were administered in the Emergency Department. See MAR. Independent interpretation of the following test(s) in the Emergency Department EKG: See my EKG interpretation above. Test considered but Not performed: CT: NO CT HEAD. Historians other than the Patient: EMS: EMS WELL INFORMED. Care significantly affected by the following chronic conditions: ANXIETY, SCHIZO, CBP. 05/16 20:30 Order name: Acetaminophen; Complete Time: 21:53 radha 05/16 20:30 Order name: Basic Metabolic Panel; Complete Time: 21:53 radha 05/16 20:30 Order name: CBC with Diff; Complete Time: 21:53 radha 05/16 20:30 Order name: ETOH Level; Complete Time: 21:53 radha 05/16 20:30 Order name: Hepatic Function; Complete Time: 21:53 [facility] 05/16 20:30 Order name: PT-INR; Complete Time: :53 [facility] 05/16 20:30 Order name: Ptt, Activated; Complete Time: :53 radha 05/16 20:30 Order name: Salicylate; Complete Time: :53 radha 05/16 20:30 Order name: Urinalysis w/ reflexes; Complete Time: :53 radha 05/16 20:30 Order name: Urine Drug Screen; Complete Time: :53 [facility] 05/16 20:30 Order name: Troponin High Sensitivity; Complete Time: :53 radha 05/16 20:30 Order name: EKG; Complete Time: 20:31 radha 05/16 20:30 Order name: EKG - Nurse/Tech; Complete Time: 21:14 [facility] 05/16 20:30 Order name: IV Saline Lock; Complete Time: 20:59 [facility] 05/16 20:30 Order name: Labs collected and sent; Complete Time: 20:59 [facility] 05/16 20:30 Order name: Suicide Screening ([place]); Complete Time: 21:00 [facility] EC:53 Rate is 96 beats/min. Rhythm is regular. QRS [place] is Normal. MT interval is normal. QRS radha interval is normal. QT interval is normal. No Q waves. T waves are Normal. No ST changes noted. Clinical impression: NSR w/ Non-specific ST/T Changes and No evidence of ischemia. Interpreted by me. Reviewed by me. Administered Medications: 21:50 Drug: Ativan IVP 2 mg IVP once Route: IVP; Site: right forearm; ha1 22:10 Follow up: Response: No adverse reaction; Anxiety decreased; RASS: Alert and Calm (0) 1 05/17 10:37 Not Given (Patient Refused): ns 0.9% 1000 ml IV at 1 bolus Per protocol; 1000 mL bolus rs5 10:38 Not Given (pt calm and cooperative\T\ 0710 Disposition Summary: 05/16/23 22:00 Transfer Ordered Notes: Transfer Location: Psych Facility radha Reason: Higher level of care radha Condition: Stable radha Problem: new radha Symptoms: have improved radha Accepting Physician: TO PSYCH(05/17/23 10:27) rs5 Diagnosis - Schizophrenia, unspecified radha - Auditory hallucinations radha Forms: - Medication Reconciliation Form radha - SBAR form radha Signatures: Dispatcher [employer] Dakota Perera MD MD cha Calcote, Vanessa, RN RN vc1 Megan Giles RN RN ha1 Juan Miguel Lees RN RN rs5 Corrections: (The following items were deleted from the chart) 05/16 22:00 TO PSYCH radha rs5 05/17 10: 10:27 TO PSYCH rs5 rs5
--- NOTE | 2023-05-16 22:00 | ER ---
Nurse's Notes [facility] Name: Ron Coronado Age: 47 yrs Sex: Male : 1975 Arrival Date: 05/16/2023 Time: 20:15 Bed 14 Private MD: Diagnosis: Schizophrenia, unspecified;Auditory hallucinations Presentation: 05/16 20:33 Chief complaint: EMS states: We were called out for chest pain and hallucinations. vc1 20:35 Chief complaint: Patient states: "I'm not having chest pain I'm just really anxious can vc1 you give me something". Coronavirus screen: Client denies travel out of the [place] in the last 14 days. At this time, the client does not indicate any symptoms associated with coronavirus-19. Ebola Screen: Patient negative for fever greater than or equal to 101.5 degrees Fahrenheit, and additional compatible Ebola Virus Disease symptoms Patient denies exposure to infectious person. Patient denies travel to an Ebola-affected area in the 21 days before illness onset. No symptoms or risks identified at this time. Initial Sepsis Screen: Does the patient meet any 2 criteria? No. Patient's initial sepsis screen is negative. Does the patient have a suspected source of infection? No. Patient's initial sepsis screen is negative. Risk Assessment: Do you want to hurt yourself or someone else? Patient reports no desire to harm self or others. Note This is patients third visit. He left AMA the first time refusing to be transferred to a psych facility for hallucinations. The second visit he was discharged after refusing to be transferred, after discharge patient became combative in the lobby and the police were called. Pt went back home then called EMS again. Onset of symptoms is unknown. Care prior to arrival: None. Activity prior to arrival: combative. 20:35 Method Of Arrival: EMS: [facility] vc1 20:35 Acuity: QUINTEN 3 vc1 Triage Assessment: 20:43 General: Appears in no apparent distress. comfortable, unkempt, Behavior is vc1 cooperative, anxious, Smells of alcohol. Pain: Denies pain. EENT: Sclera/Cornea are reddened in right eye and left eye. Neuro: Level of Consciousness is awake, alert, obeys commands, Oriented to person, place. Cardiovascular: No deficits noted. Respiratory: Airway is patent Respiratory effort is even, unlabored, Respiratory pattern is regular, symmetrical. GI: No deficits noted. No signs and/or symptoms were reported involving the gastrointestinal system. : No deficits noted. No signs and/or symptoms were reported regarding the genitourinary system. Derm: No deficits noted. No signs and/or symptoms reported regarding the dermatologic system. Musculoskeletal: No deficits noted. No signs and/or symptoms reported regarding the musculoskeletal system. Historical: - Allergies: 20:41 No Known Allergies; vc1 - PMHx: 20:41 Anxiety; chronic back pain; Schizophrenia; vc1 - PSHx: 20:41 hernia repairs; vc1 - Immunization history:: Flu vaccine status is unknown. - Social history:: Smoking status: Patient reports the use of cigarette tobacco products, 3-4 a day, Patient uses alcohol, street drugs, Methamphetamine (Meth) States used Meth a few days ago. - Family history:: not pertinent. Screenin:42 [facility] ED Fall Risk Assessment (Adult) History of falling in the last 3 months, vc1 including since admission No falls in past 3 months (0 pts) Confusion or Disorientation Yes (5 pts) Intoxicated or Sedated No (0 pts) Impaired Gait No (0 pts) Mobility Assist Device Used No (0 pt) Altered Elimination No (0 pt) Score/Fall Risk Level 0 - 2 = Low Risk Oriented to surroundings, Maintained a safe environment, Educated pt \\T\\ family on fall prevention, incl call for assistance when getting out of bed, Hourly rounding (assess needs \\T\\ fall precautionary measures) done. Abuse screen: Denies threats or abuse. Nutritional screening: No deficits noted. Tuberculosis screening: No symptoms or risk factors identified. Assessment: 20:28 General: Appears comfortable, Behavior is anxious, restless. Pain: Complains of pain in ha1 PT. REPORTS CHEST PAIN THAT HAS BEEN ONGOING FOR THREE DAYS Pain does not radiate. Pain currently is 5 out of 10 on a pain scale. Quality of pain is described as pressure. Neuro: Level of Consciousness is awake, alert, Oriented to person, place, time, situation, PT. TALKING TO VOICES. PT. STATES " I HAVE MULTIPLE PEOPLE I TALK TO". Cardiovascular: Heart tones S1 S2 present Capillary refill < 3 seconds Patient's skin is warm and dry. Rhythm is sinus tachycardia. Respiratory: Airway is patent Respiratory effort is even, unlabored, Respiratory pattern is regular, symmetrical. Derm: Skin is pink, warm \\T\\ dry. 20:29 Reassessment: DENIES SUICIDAL IDEATION. ha1 20:30 General: "I just want to save the world" "I have flies coming out of my ears, do you vc1 see them". 21:03 General: Pt stood in doorway and exposed his self to ER staff. Pt informed if he does vc1 it again the police will be called. Pt states he understands and doesn't know why he did it.. 22:00 General: Appears Behavior is agitated, anxious, restless. ha1 22:10 General: Appears comfortable, Behavior is calm, cooperative. Respiratory: Airway is ha1 patent Respiratory effort is even, unlabored, Respiratory pattern is regular, symmetrical. 23:10 Reassessment: Patient and/or family updated on plan of care and expected duration. Pain ha1 level reassessed. Patient is alert, oriented x 3, equal unlabored respirations, skin warm/dry/pink. 23:10 General: Appears comfortable, Behavior is calm, cooperative. ha1 23:56 Reassessment: EYES CLOSED. Respiratory: Airway is patent Respiratory effort is even, ha1 unlabored, Respiratory pattern is regular, symmetrical. 05/17 00:55 Reassessment: eyes closed. Respiratory: Airway is patent Respiratory effort is even, ha1 unlabored, Respiratory pattern is regular, symmetrical. 02:15 Reassessment: EYES CLOSED. Respiratory: Airway is patent Respiratory effort is even, ha1 unlabored, Respiratory pattern is regular, symmetrical. 03:15 Reassessment: EYES CLOSED. Respiratory: Airway is patent Respiratory effort is even, ha1 unlabored, Respiratory pattern is regular, symmetrical. 04:15 Reassessment: EYES CLOSED. Respiratory: Airway is patent Respiratory effort is even, ha1 unlabored, Respiratory pattern is regular, symmetrical. 05:15 Reassessment: EYES CLOSED. Respiratory: Airway is patent Respiratory effort is even, ha1 unlabored, Respiratory pattern is regular, symmetrical. 06:15 Reassessment: EYES CLOSED. Respiratory: Airway is patent Respiratory effort is even, ha1 unlabored, Respiratory pattern is regular, symmetrical. 07:01 Reassessment: No changes from previously documented assessment. rs5 08:32 Reassessment: Patient and/or family updated on plan of care and expected duration. Pain rs5 level reassessed. Patient is alert, oriented x 3, equal unlabored respirations, skin warm/dry/pink. General: Appears in no apparent distress. comfortable, Behavior is calm, cooperative. Pain: Denies pain. Neuro: Level of Consciousness is awake, alert, obeys commands, Oriented to person, place, time, situation. Cardiovascular: Patient's skin is warm and dry. Rhythm is regular. Respiratory: Respiratory effort is even, unlabored, Respiratory pattern is regular, symmetrical. GI: Abdomen is round non-distended, Abd is soft and non tender. : No signs and/or symptoms were reported regarding the genitourinary system. EENT: No signs and/or symptoms were reported regarding the EENT system. Derm: Skin is intact, Skin is pink, warm \\T\\ dry. Musculoskeletal: Range of motion: intact in all extremities. 08:32 Reassessment: PT DENIES SUICIDAL OR HOMICIDAL IDEATION. Pt denies auditory or visual rs5 hallucinations. [place]aug[place] and chips provided per pt request. 09:45 Reassessment: No changes from previously documented assessment. transfer form complete. rs5 09:50 Reassessment: report given to EMS at bedside. rs5 Psych: 05/16 20:28 Safety Checks: Door is open. Patient uses methamphetamines daily. Commitment: Patient ha1 will be a voluntary commitment. 20:53 [place] Suicide Severity Screening: In the past month, have you wished you were vc1 or wished you could go to sleep and not wake up? Patient responds "No." "In the past month, have you actually had any thoughts of killing yourself?" Patient responds "no." "In your lifetime, have you ever done anything, started to do anything, or prepared to do anything to end your life?" Patient responds "no.". Subjective:. Objective: Patient is cooperative. Vital Signs: 20:35 BP 132 / 76; Pulse 107; Resp 12; Pulse Ox 97% ; Weight 70.31 kg; Height 5 ft. 6 in. ; vc1 23:55 BP 109 / 87; Pulse 87; Resp 17 S; Pulse Ox 97% on R/A; ha1 05/17 00:56 BP 120 / 92; Pulse 95; Resp 17 S; Pulse Ox 97% on R/A; ha1 02:00 BP 145 / 99; Pulse 75; Resp 17 S; Pulse Ox 100% on R/A; ha1 04:00 BP 136 / 80; Pulse 85; Resp 17 S; Pulse Ox 95% on R/A; ha1 06:51 BP 121 / 88; Pulse 78; Resp 17 S; Pulse Ox 99% on R/A; ha1 09:50 BP 125 / 91; Pulse 81; Resp 17; Pulse Ox 99% on R/A; rs5 05/16 20:35 Body Mass Index 25.02 (70.31 kg, 167.64 cm) vc1 ED Course: 05/16 20:28 Patient arrived in ED. vc1 20:28 Dakota Mercado MD is Attending Physician. [facility] 20:33 Daily Dixon, MAKENZIE is Primary Nurse. vc1 20:41 Triage completed. vc1 20:42 Arm band placed on right wrist. vc1 20:45 Patient has correct armband on for positive identification. Bed in low position. Call vc1 light in reach. Side rails up X2. Pulse ox on. NIBP on. 20:58 Inserted saline lock: 20 gauge in right forearm, using aseptic technique. Blood as6 collected. 05/17 08:34 No provider procedures requiring assistance completed. rs5 09:37 Dalila from [facility] called said to use the same MOT information from yessterday eb they will take him. 09:45 IV discontinued, intact, bleeding controlled, No redness/swelling at site. Pressure rs5 dressing applied. Administered Medications: 05/16 21:50 Drug: Ativan IVP 2 mg IVP once Route: IVP; Site: right forearm; ha1 22:10 Follow up: Response: No adverse reaction; Anxiety decreased; RASS: Alert and Calm (0) [facility] 05/17 10:37 Not Given (Patient Refused): ns 0.9% 1000 ml IV at 1 bolus Per protocol; 1000 mL bolus rs5 10:38 Not Given (pt calm and cooperative\\T\\ 0710 Medication: 05/16 20:45 VIS not applicable for this client. vc1 Outcome: 22:00 ER care complete, transfer ordered by . [facility] 05/17 10:20 Transferred by ground EMS Transfer form completed. rs5 Condition: stable Instructed on the need for transfer, Demonstrated understanding of instructions, follow-up care, 10:27 Patient left the ED. rs5 Signatures: Dakota Mercado MD MD cha Botello, Elizabeth eb Slawson, Ashby, RN RN as6 Daily Dixon RN RN vc1 Megan Giles RN RN ha1 Juan Miguel Lees RN RN rs5 Corrections: (The following items were deleted from the chart) 05/16 20:41 20:32 Chief complaint: vc1 vc1 23:55 22:45 Response: No adverse reaction; Anxiety decreased; RASS: Alert and Calm (0) ha1 ha1 05/17 10:29 08:32 Reassessment: PT DENIES SUICIDAL OR HOMICIDAL IDEATION. rs5 rs5 10:39 09:45 Reassessment: No changes from previously documented assessment. rs5 rs5
[2023-05-17 10:52] VITALS: BP 121/88; O2SAT 99
--- NOTE | 2023-05-19 14:36 | EKG ---
Test Date: 2023-05-16 Test Time: 21:09:48 [employer]: ESTEFANIA MEASUREMENT RESULTS: Intervals: Rate: 96 OR: 136 QRSD: 90 QT: 346 QTc: 437 [place]: P: 67 OR: 136 QRS: 93 T: 26 INTERPRETIVE STATEMENTS: Normal sinus rhythm Rightward axis Borderline ECG Compared to ECG 05/16/2023 00:04:07 Right-axis deviation now present Electronically Signed On 05-19-23 14:29:07 MENTAL HEALTH NURSE by Sushil Clark
== END ==
LOC: ER 20:15
DX: F20.9 Schizophrenia, unspecified (principal); F17.210 Nicotine dependence, cigarettes, uncomplicated
CPT/HCPCS: 36415; 80048; 80076; 80143; 80179; 80307; 81001; 82077; 84484; 85025; 85610; 85730; 93005

== ENCOUNTER → 2023-05-16 | Emergency (ER) | payer SELFPAY ==
--- NOTE | 2023-05-16 17:35 | EDPHYS ---
Physician Documentation [facility] Name: Ron Coronado Age: 47 yrs Sex: Male : 1975 Arrival Date: 05/16/2023 Time: 15:54 Bed IW1 Private MD: ED Physician Guillermo Yi HPI: 05/16 17:09 This 47 yrs old Male presents to ER via EMS with complaints of hallucinations. rn 17:09 The patient presents to the emergency department with Hallucinations. Onset: The rn symptoms/episode began/occurred at an unknown time. Severity of symptoms: At their worst the symptoms were mild in the emergency department the symptoms are unchanged. The patient has experienced similar episodes in the past. Patient with history of schizophrenia. Reports visual and auditory hallucinations. No suicidal ideations or homicidal ideations. Denies command auditory hallucinations. Was seen here overnight and physician attempted to transfer, patient refused and left. Patient returns and still refuses transfer, states just needs a place to rest. Patient requests Ativan and would like to sleep in the emergency room overnight and would like to go home in the morning. Denies any drug use. Historical: - Allergies: 15:58 No Known Allergies; ll1 - PMHx: 15:58 Anxiety; chronic back pain; Schizophrenia; ll1 - PSHx: 15:58 hernia repairs; ll1 - Immunization history:: Adult Immunizations up to date. - Social history:: Smoking status: Patient reports the use of cigarette tobacco products, smokes .20 packs per day. - Family history:: not pertinent. - Hospitalizations: : No recent hospitalization is reported. ROS: 17:09 Constitutional: Negative for fever, chills, and weight loss, Cardiovascular: Negative rn for chest pain, palpitations, and edema, Respiratory: Negative for shortness of breath, cough, wheezing, and pleuritic chest pain, Abdomen/GI: Negative for abdominal pain, nausea, vomiting, diarrhea, and constipation, MS/Extremity: Negative for injury and deformity, Skin: Negative for injury, rash, and discoloration, Neuro: Negative for headache, weakness, numbness, tingling, and seizure, Psych: + for hallucinations Exam: 17:09 Constitutional: This is a well developed, well nourished patient who is awake, alert, rn and in no acute distress. Cardiovascular: Regular rate and rhythm. No pulse deficits. Respiratory: No increased work of breathing, no retractions or nasal flaring. Abdomen/GI: Soft, non-tender Neuro: Awake and alert, GCS 15, oriented to person, place, time, and situation. Cranial nerves II-XII grossly intact. Motor strength 5/5 in all extremities. Sensory grossly intact. Normal gait Vital Signs: 15:56 BP 121 / 86; Pulse 105; Resp 18; Temp 98; Pulse Ox 99% ; Weight 70.31 kg; Height 5 ft. ll1 6 in. ; Pain 5/10; 17:40 BP 121 / 81; Pulse 90; Resp 17; Pulse Ox 99% ; ll1 15:56 Body Mass Index 25.02 (70.31 kg, 167.64 cm) ll1 15:56 Pain Scale: Adult ll1 MDM: 16:00 Patient medically screened. rn 17:33 Differential diagnosis: psychosis secondary to non-compliance. Data reviewed: vital rn signs, nurses notes, and as a result, I will discharge patient. Counseling: I had a detailed discussion with the patient and/or guardian regarding the historical points, exam findings, and any diagnostic results supporting the discharge/admit diagnosis, the need for outpatient follow up, to return to the emergency department if symptoms worsen or persist or if there are any questions or concerns that arise at home. Refusal of service: The patient/guardian displays adequate decision making capability and despite a detailed discussion of alternatives, benefits, risks, and consequences refuses: Admission to the hospital for further work-up and treatment, all lab tests, Transfer. ED course: Patient has changes mind. States weight is too long and would like to go home. Request food and bus pass to [employer]. Still denies suicidal ideations and homicidal ideations.. 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
--- NOTE | 2023-05-16 17:35 | ER ---
Nurse's Notes [facility] Name: Ron Coronado Age: 47 yrs Sex: Male : 1975 Arrival Date: 05/16/2023 Time: 15:54 Bed IW1 Private MD: Diagnosis: Schizophrenia, unspecified Presentation: 05/16 15:56 Chief complaint: Patient states: Hearing voices still. "I just need a place to rest ll1 until morning." Denies SI or HI. Still does not want to go to a Mental Health facility, states "I cant go anywhere, I have things to do.". Coronavirus screen: Client denies travel out of the [place] in the last 14 days. At this time, the client does not indicate any symptoms associated with coronavirus-19. Ebola Screen: Patient denies travel to an Ebola-affected area in the 21 days before illness onset. Initial Sepsis Screen: Does the patient meet any 2 criteria? No. Patient's initial sepsis screen is negative. Does the patient have a suspected source of infection? No. Patient's initial sepsis screen is negative. Risk Assessment: Do you want to hurt yourself or someone else? Patient reports no desire to harm self or others. Onset of symptoms was May 13, 2023. 15:56 Method Of Arrival: EMS: [facility] 15:56 Acuity: QUINTEN 4 ll1 Triage Assessment: 15:58 General: Appears unkempt, Behavior is calm, cooperative, appropriate for age. General: ll1 Reports wanting to rest. Pain: Denies pain. Neuro: No deficits noted. Cardiovascular: No deficits noted. Respiratory: No deficits noted. Historical: - Allergies: 15:58 No Known Allergies; ll1 - PMHx: 15:58 Anxiety; chronic back pain; Schizophrenia; ll1 - PSHx: 15:58 hernia repairs; ll1 - Immunization history:: Adult Immunizations up to date. - Social history:: Smoking status: Patient reports the use of cigarette tobacco products, smokes .20 packs per day. - Family history:: not pertinent. - Hospitalizations: : No recent hospitalization is reported. Screenin:40 [facility] ED Fall Risk Assessment (Adult) Score/Fall Risk Level 0 - 2 = Low Risk ll1 Oriented to surroundings, Maintained a safe environment, Educated pt \\T\\ family on fall prevention, incl call for assistance when getting out of bed, Hourly rounding (assess needs \\T\\ fall precautionary measures) done. Abuse screen: Denies threats or abuse. Nutritional screening: No deficits noted. Tuberculosis screening: No symptoms or risk factors identified. Assessment: 16:38 Reassessment: Patient and/or family updated on plan of care and expected duration. Pain ll1 level reassessed. laying in lobby chair. No apparent distress. 17:28 Reassessment: No changes from previously documented assessment. Dr. Yi re evaluating hb patient in triage. 17:40 Reassessment: No changes from previously documented assessment. Patient and/or family ll1 updated on plan of care and expected duration. Pain level reassessed. Patient is alert, oriented x 3, equal unlabored respirations, skin warm/dry/pink. Patient states feeling better. Vital Signs: 15:56 BP 121 / 86; Pulse 105; Resp 18; Temp 98; Pulse Ox 99% ; Weight 70.31 kg; Height 5 ft. ll1 6 in. ; Pain 5/10; 17:40 BP 121 / 81; Pulse 90; Resp 17; Pulse Ox 99% ; ll1 15:56 Body Mass Index 25.02 (70.31 kg, 167.64 cm) ll1 15:56 Pain Scale: Adult ll1 ED Course: 15:56 Patient arrived in ED. ll1 15:58 Triage completed. ll1 15:59 Arm band placed on. ll1 16:00 Guillermo Yi MD is Attending Physician. rn 16:00 Patient notified of wait time. ll1 16:00 Provided Education on: ER process. ll1 17:40 Patient has correct armband on for positive identification. Bed in low position. Call ll1 light in reach. 17:40 No provider procedures requiring assistance completed. Patient did not have IV access ll1 during this emergency room visit. Administered Medications: No medications were administered Medication: 17:40 VIS not applicable for this client. ll1 Outcome: 17:34 Discharge ordered by . rn 17:40 Discharged to home ambulatory, ll1 17:40 Condition: stable 17:40 Discharge instructions given to patient, Instructed on discharge instructions, follow up and referral plans. Demonstrated understanding of instructions, follow-up care, 17:41 Patient left the ED. ll1 Signatures: Guillermo Yi MD MD rn Baxter, Heather, RN RN hb Lewis, Lynsay, RN RN ll1 Corrections: (The following items were deleted from the chart) 16:00 15:56 Resp 18bpm; 70.31 kg; Height 5 ft. 6 in.; BMI: 25.0; Pain 5/10, Adult; ll1 ll1 16:07 15:56 Acuity: QUINTEN 2 ll1 ll1 16:37 15:56 Chief complaint: Patient states: Hearing voices still. ll1 ll1
[2023-05-16 17:51] VITALS: BP 121/81; TEMP 98; O2SAT 99
== END ==
LOC: ER 15:54
DX: F20.9 Schizophrenia, unspecified (principal)

== ENCOUNTER 2024-11-17 23:37 | Emergency (ER) | payer OTHER, SELFPAY ==
[2024-11-18] MEDS ORDERED: NA CHLORIDE 0.9% 1,000 ML ONE (00:22)
[2024-11-18 01:00] LABS: Absolute Lymphocytes (CBC) 0.9 K/uL (0.7-4.9); Hematocrit 45.8 % (39.6-49.0); Hemoglobin 15.7 g/dL (13.6-17.9); MCH 30.4 pg (27.0-35.0); MCHC 34.3 g/dL (32.0-36.0); MCV 88.5 fL (80-100); MPV 8.4 fL (7.6-11.3); Nucleated RBC Absolute Count 0.0 (0-0); Nucleated Red Blood Cells % 0.0 % (0-0); RBC Red Blood Cell Count 5.18 M/uL (4.33-5.43); White Blood Count 7.10 thou/uL (4.3-10.9)
[2024-11-18 01:09] LABS: ALT/SGPT 33.0 U/L (16-61); AST/SGOT 21.0 U/L (15-37); Albumin 3.6 g/dL (3.4-5.0); Albumin/Globulin Ratio 1.0 (1.1-1.8); Alkaline Phosphatase 89.0 U/L (45-117); Anion Gap 9.0 mEq/L (5.0-15.0); BUN Blood Urea Nitrogen 13.0 mg/dL (7-18); Globulin 3.5 g/dL (2.3-3.5); Glucose Level 114.0 mg/dL (74-106); Potassium 4.0 mEq/L (3.5-5.1)
[2024-11-18 02:36] LABS: Calcium Oxalate Crystals- Ur Few /HPF (None Seen); Sqamous Epithelial <5 /HPF (None Seen); Urine Culture Reflex Order NOT NEEDED; Urine Microscopic Reflex YN ORDER UMIC
[2024-11-18 02:44] LABS: METHAMPHETAM POSITIVE (NEGATIVE); THC Cannibis POSITIVE (NEGATIVE)
--- NOTE | 2024-11-18 03:47 | ER ---
Nurse's Notes [facility] Name: Ron Coronado Age: 49 yrs Sex: Male : 1975 Arrival Date: 11/17/2024 Time: 23:37 Bed 2 Private MD: Diagnosis: Other psychoactive substance abuse Presentation: 11/17 23:40 Chief complaint: EMS states: found PT in parking lot confused. pt reports marijuana and lg3 meth use prior to EMS transport. Coronavirus screen: Client denies travel out of the [place] in the last 14 days. At this time, the client does not indicate any symptoms associated with coronavirus-19. Ebola Screen: No symptoms or risks identified at this time. Initial Sepsis Screen: Does the patient meet any 2 criteria? No. Patient's initial sepsis screen is negative. Does the patient have a suspected source of infection? No. Patient's initial sepsis screen is negative. Risk Assessment: Do you want to hurt yourself or someone else? Patient reports no desire to harm self or others. Onset of symptoms was November 17, 2024. 23:40 Method Of Arrival: EMS: [facility] 3 23:40 Acuity: QUINTEN 3 lg3 Triage Assessment: 23:44 General: Appears in no apparent distress. unkempt, Behavior is calm, cooperative. Pain: lg3 Complains of pain in chest Pain does not radiate. Pain currently is 3 out of 10 on a pain scale. Quality of pain is described as pressure. EENT: No deficits noted. No signs and/or symptoms were reported regarding the EENT system. Neuro: Richter Agitation-Sedation Scale (RASS): -1 Drowsy Level of Consciousness is awake, alert, obeys commands, Oriented to person, place, situation. Cardiovascular: No deficits noted. Heart tones S1 S2 absent Capillary refill < 3 seconds Clubbing of nail beds is absent JVD is absent Patient's skin is warm and dry. Respiratory: No deficits noted. Airway is patent Respiratory effort is even, unlabored, Respiratory pattern is regular, symmetrical, Breath sounds are clear bilaterally. GI: No deficits noted. No signs and/or symptoms were reported involving the gastrointestinal system. Abdomen is flat, non-distended. : No signs and/or symptoms were reported regarding the genitourinary system. Derm: No deficits noted. No signs and/or symptoms reported regarding the dermatologic system. Skin is intact, is healthy with good turgor, Skin is dry, Skin is normal, Skin temperature is warm. Musculoskeletal: No deficits noted. No signs and/or symptoms reported regarding the musculoskeletal system. Circulation, motion, and sensation intact. Range of motion: intact in all extremities. Historical: - Allergies: 23:44 No Known Allergies; lg3 - Home Meds: 23:44 None [Active]; lg3 - PMHx: 23:44 Anxiety; chronic back pain; Schizophrenia; lg3 - PSHx: 23:44 hernia repairs; lg3 - Immunization history:: Adult Immunizations unknown. - Infectious Disease History:: Denies. - Social history:: Smoking status: Patient reports the use of cigarette tobacco products, smokes one pack cigarettes per day. Patient uses street drugs, marijuana, Methamphetamine (Meth) Patient/guardian denies using alcohol. Screenin:46 [facility] ED Fall Risk Assessment (Adult) History of falling in the last 3 months, lg3 including since admission No falls in past 3 months (0 pts) Confusion or Disorientation No (0 pts) Intoxicated or Sedated Yes (3 pts) Impaired Gait No (0 pts) Mobility Assist Device Used No (0 pt) Altered Elimination No (0 pt) Score/Fall Risk Level 3 or more points = High Risk Oriented to surroundings, Maintained a safe environment, Educated pt \\T\\ family on fall prevention, incl call for assistance when getting out of bed, Assessed \\T\\ reinforced patient's understanding of fall precautions. Abuse screen: Denies threats or abuse. Denies injuries from another. Nutritional screening: No deficits noted. Tuberculosis screening: No symptoms or risk factors identified. Assessment: 23:46 General: see triage assessment. lg3 11/18 00:58 Reassessment: Patient appears in no apparent distress at this time. No changes from lg3 previously documented assessment. Patient and/or family updated on plan of care and expected duration. Pain level reassessed. Patient is alert, oriented x 3, equal unlabored respirations, skin warm/dry/pink. 02:03 Reassessment: Patient appears in no apparent distress at this time. No changes from lg3 previously documented assessment. Patient and/or family updated on plan of care and expected duration. Pain level reassessed. Patient is alert, oriented x 3, equal unlabored respirations, skin warm/dry/pink. 04:01 General: Appears in no apparent distress. comfortable, Behavior is calm, cooperative. lg3 Pain: Denies pain. Neuro: No deficits noted. Richter Agitation-Sedation Scale (RASS): 0 - Alert and Calm Level of Consciousness is awake, alert, obeys commands, Oriented to person, place, time, situation. Cardiovascular: No deficits noted. Denies chest pain, shortness of breath, Capillary refill < 3 seconds Clubbing of nail beds is absent JVD is absent Patient's skin is warm and dry. Respiratory: No deficits noted. Airway is patent Respiratory effort is even, unlabored, Respiratory pattern is regular, symmetrical. GI: No deficits noted. No signs and/or symptoms were reported involving the gastrointestinal system. : No signs and/or symptoms were reported regarding the genitourinary system. EENT: No deficits noted. No signs and/or symptoms were reported regarding the EENT system. Derm: No deficits noted. No signs and/or symptoms reported regarding the dermatologic system. Skin is intact, is healthy with good turgor, Skin is dry, Skin is normal, Skin temperature is warm. Musculoskeletal: No deficits noted. No signs and/or symptoms reported regarding the musculoskeletal system. Circulation, motion, and sensation intact. Range of motion: intact in all extremities. Overdose: 11/17 23:40 [place] Suicide Severity Screening: "In the past month, have you wished you were lg3 or wished you could go to sleep and not wake up?" Patient responds "no." "In the past month, have you actually had any thoughts of killing yourself?" Patient responds "no." "In your lifetime, have you ever done anything, started to do anything, or prepared to do anything to end your life?" Patient responds "no.". 11/18 04:03 [place] Suicide Severity Screening: "In the past month, have you wished you were lg3 or wished you could go to sleep and not wake up?" Patient responds "no." "In the past month, have you actually had any thoughts of killing yourself?" Patient responds "no." "In your lifetime, have you ever done anything, started to do anything, or prepared to do anything to end your life?" Patient responds "no.". Vital Signs: 11/17 23:40 BP 107 / 68; Pulse 102; Resp 16 S; Temp 97.5(O); Pulse Ox 96% on R/A; Weight 70.31 kg lg3 (R); Height 5 ft. 6 in. (R); 11/18 00:59 BP 111 / 69; Pulse 84; Resp 16 S; Pulse Ox 99% on R/A; lg3 02:03 BP 132 / 84; Pulse 67; Resp 16 S; Pulse Ox 100% on R/A; lg3 04:01 BP 129 / 77; Pulse 61; Resp 17 S; Pulse Ox 100% on R/A; lg3 11/17 23:40 Body Mass Index 25.02 (70.31 kg, 167.64 cm) lg3 ED Course: 11/17 23:38 Patient arrived in ED. jj6 23:44 Triage completed. lg3 23:44 Fran Zhao MD is Attending Physician. tw7 23:44 Arm band placed on right wrist. lg3 23:46 Patient has correct armband on for positive identification. Placed in gown. Bed in low lg3 position. Call light in reach. Side rails up X2. Client placed on continuous cardiac and pulse oximetry monitoring. NIBP monitoring applied. monitoring specialist on. Door closed. Noise minimized. Warm blanket given. Pillow given. 11/18 00:02 Christa Bermudez, RN is Primary Nurse. lg3 00:26 Initial lab(s) drawn, by ED staff, sent to lab. Inserted saline lock: 22 gauge in right lg3 antecubital area, using aseptic technique. Blood collected. Flushed with 10 mL NS. 02:13 Urine collected: clean catch specimen, clear. lg3 04:03 No provider procedures requiring assistance completed. IV discontinued, intact, lg3 bleeding controlled, No redness/swelling at site. Pressure dressing applied. Administered Medications: 00:26 Drug: NS 0.9% IV 1000 ml IV at 1000 ml once; to be given as a bolus over 60 minutes jj7 Route: IV; Rate: 1000 ml; Site: right antecubital; 00:59 Follow up: IV Status: Completed infusion; IV Intake: 1000ml lg3 Medication: 11/17 23:46 VIS not applicable for this client. lg3 Intake: 11/18 00:59 IV: 1000ml; Total: 1000ml. lg3 Outcome: 03:47 Discharge ordered by . tw7 04:03 Discharged to home ambulatory, lg3 04:03 Condition: stable 04:03 Discharge instructions given to patient, Instructed on discharge instructions, follow up and referral plans. Demonstrated understanding of instructions, follow-up care, 04:04 Patient left the ED. lg3 Signatures: Christa Bermudez RN RN lg3 Michelle Knott jj6 Roddy Mcmahan RN RN jj7 Fran Zhao MD MD tw7
--- NOTE | 2024-11-18 03:47 | EDPHYS ---
Physician Documentation [facility] Name: Ron Coronado Age: 49 yrs Sex: Male : 1975 Arrival Date: 11/17/2024 Time: 23:37 Bed 2 Private MD: ED Physician Fran Zhao HPI: 11/18 00:27 This 49 yrs old Male presents to ER via EMS with complaints of Drug Abuse. tw 00:27 49-year-old male with a past ministry of chronic back pain, substance abuse presents ED tw7 today via EMS for further evaluation of drug abuse. Patient reports that he smoked marijuana today and then he used some meth and he was sitting in front of a gas station and someone called EMS. He currently is without medical complaint, denies abdominal pain, chest pain, shortness of breath or otherwise at the time my evaluation. He says that he feels dehydrated requesting water. He denies fever or cough. Has had a normal day before he used drugs sometime this evening, does not know the exact time that he the methamphetamine. Patient is alert awake and oriented x 4. He reports he is starting to come down. He denies auditory or visual donations, suicidal or homicidal ideation.. Historical: - Allergies: 11/17 23:44 No Known Allergies; lg3 - Home Meds: 23:44 None [Active]; lg3 - PMHx: 23:44 Anxiety; chronic back pain; Schizophrenia; lg3 - PSHx: 23:44 hernia repairs; lg3 - Immunization history:: Adult Immunizations unknown. - Infectious Disease History:: Denies. - Social history:: Smoking status: Patient reports the use of cigarette tobacco products, smokes one pack cigarettes per day. Patient uses street drugs, marijuana, Methamphetamine (Meth) Patient/guardian denies using alcohol. ROS: 11/18 00:27 Constitutional: Negative for fever, chills, and weight loss, Eyes: Negative for injury, tw7 pain, redness, and discharge, ENT: Negative for injury, pain, and discharge, Neck: Negative for injury, pain, and swelling, Cardiovascular: Negative for chest pain, palpitations, and edema, Respiratory: Negative for shortness of breath, cough, wheezing, and pleuritic chest pain, Abdomen/GI: Negative for abdominal pain, nausea, vomiting, diarrhea, and constipation, Back: Negative for injury and pain, MS/Extremity: Negative for injury and deformity, Skin: Negative for injury, rash, and discoloration, Neuro: Negative for headache, weakness, numbness, tingling, and seizure, Psych: Negative for depression, anxiety, suicide ideation, homicidal ideation, and hallucinations, Exam: 00:30 Constitutional: This is a well developed, well nourished patient who is awake, alert, tw7 and in no acute distress. Head/Face: Normocephalic, atraumatic. Eyes: Pupils equal round and reactive to light, extra-ocular motions intact. Lids and lashes normal. Conjunctiva and sclera are non-icteric and not injected. Cornea within normal limits. Periorbital areas with no swelling, redness, or edema. ENT: Nares patent. No nasal discharge, no septal abnormalities noted. Tympanic membranes are normal and external auditory canals are clear. Oropharynx with no redness, swelling, or masses, exudates, or evidence of obstruction, uvula midline. Mucous membranes moist. Neck: Trachea midline, no thyromegaly or masses palpated, and no cervical lymphadenopathy. Supple, full range of motion without nuchal rigidity, or vertebral point tenderness. No Meningismus. Chest/axilla: Normal chest wall appearance and motion. Nontender with no deformity. No lesions are appreciated. Cardiovascular: Regular rate and rhythm with a normal S1 and S2. No gallops, murmurs, or rubs. Normal PMI, no JVD. No pulse deficits. Respiratory: Lungs have equal breath sounds bilaterally, clear to auscultation and percussion. No rales, rhonchi or wheezes noted. No increased work of breathing, no retractions or nasal flaring. Abdomen/GI: Soft, non-tender, with normal bowel sounds. No distension or tympany. No guarding or rebound. No evidence of tenderness throughout. Negative Jones's. Negative McBurney's Skin: Warm, dry with normal turgor. Normal color with no rashes, no lesions, and no evidence of cellulitis. MS/ Extremity: Pulses equal, no cyanosis. Neurovascular intact. Full, normal range of motion. Neuro: Awake and alert, GCS 15, oriented to person, place, time, and situation. Cranial nerves II-XII grossly intact. Motor strength 5/5 in all extremities. Sensory grossly intact. Cerebellar exam normal. Normal gait. Psych: Awake, alert, with orientation to person, place and time. Behavior, mood, and affect are within normal limits. 00:30 Special observations: Patient is tachycardic, sunburnt, disheveled appearance otherwise normal, Vital Signs: 11/17 23:40 BP 107 / 68; Pulse 102; Resp 16 S; Temp 97.5(O); Pulse Ox 96% on R/A; Weight 70.31 kg lg3 (R); Height 5 ft. 6 in. (R); 11/18 00:59 BP 111 / 69; Pulse 84; Resp 16 S; Pulse Ox 99% on R/A; lg3 02:03 BP 132 / 84; Pulse 67; Resp 16 S; Pulse Ox 100% on R/A; lg3 04:01 BP 129 / 77; Pulse 61; Resp 17 S; Pulse Ox 100% on R/A; lg3 11/17 23:40 Body Mass Index 25.02 (70.31 kg, 167.64 cm) lg3 MDM: 11/17 23:59 Medical Screening Exam initiated tw7 11/18 04:25 Data reviewed: vital signs, nurses notes, EMS record. ED course: 49-year-old male tw7 brought in by EMS for further evaluation of drug abuse. Patient admits to using methamphetamine and marijuana. Patient has alert awake and oriented x 3 on my examination.Mild tachycardia. Lab work performed shows no leukocytosis. Normal platelets. Patient has normal kidney function. Normal electrolytes and liver function studies. Urinalysis is negative for UTI UDS is positive for meth and THC. Patient seen metabolize in the ER for multiple hours. Patient denies fever tachycardia reassessment patient much better. Patient is in. Patient is discharged PCP follow-up. Patient instructed to abstain from substance abuse . 11/18 00:10 Order name: CBC with Diff; Complete Time: 03:47 11/18 00:10 Order name: CMP; Complete Time: 03:47 11/18 00:33 Order name: UA Rfx Derrick Cult if indicated; Complete Time: 03:47 11/18 00:33 Order name: UDS; Complete Time: 03:47 11/18 00:10 Order name: IV Saline Lock; Complete Time: 00:26 28 00:10 Order name: Labs collected and sent; Complete Time: Administered Medications: : Drug: NS 0.9% IV 1000 ml IV at 1000 ml once; to be given as a bolus over 60 minutes [id number] Route: IV; Rate: 1000 ml; Site: right antecubital; 00:59 Follow up: IV Status: Completed infusion; IV Intake: 1000ml lg3 Disposition Summary: 11/18/24 03:47 Discharge Ordered Notes: Location: Home Problem: chronic Symptoms: are unchanged Condition: Stable Diagnosis - Other psychoactive substance abuse Discharge Instructions: - Discharge Summary Sheet - Substance Use Disorder Forms: - Medication Reconciliation Form - Antibiotic Education - Prescription Opioid Use - Patient Portal Instructions - Leadership Thank You Letter Signatures: Dispatcher [employer] Christa Flores RN RN lg3 Roddy Mcmahan RN RN jj7 Fran Zhao MD MD Corrections: (The following items were deleted from the chart) 00:31 00:27 49-year-old male with a past ministry of chronic back pain, substance abuse tw presents ED today via EMS for further evaluation of drug abuse. Patient reports that he smoked marijuana today and then he used some meth and he was sitting in front of a gas station and someone called EMS. He currently is without medical complaint, denies abdominal pain, chest pain, shortness of breath or otherwise at the time my evaluation. He says that he feels dehydrated requesting water. He denies fever or cough. Has had a normal day before he used drugs sometime this evening, does not know the exact time that he the methamphetamine.. 00: 00:33 UA Rfx Derrick Cult if indicated+U.LAB.BRZ ordered. EDMS EDMS 00: 00:33 URINE DRUG SCREEN+UC.LAB.BRZ ordered. EDMS EDMS
[2024-11-18 14:58] VITALS: TEMP 97.5
[2024-11-18 15:02] VITALS: O2SAT 100
[2024-11-18 15:04] VITALS: BP 129/77
== END 2024-11-18 04:04 | disposition home or self-care (01) ==
LOC: ER 23:37
DX: F19.10 Other psychoactive substance abuse, uncomplicated (principal)
CPT/HCPCS: 36415; 80053; 80307; 81001; 85025; 96360; 99285; J7030